=== PATIENT | male | born 1985 | race Caucasian/White ===

== ENCOUNTER → 2016-12-17 | Outpatient (CLI) | payer OTHER ==
[~2016-12-17] MED LIST: ACET-1256 PO; CMP10 PO; FAMO20TA11 PO; MAGN400T6 PO; OXYSR10 PO; SENN-65 PO
[2016-12-17 12:33] LABS: BASO % 0.1 %; BASO ABS # 0.01 K/uL (0-0.2); COMPLETE YES; HEMATOCRIT 43.9 % (42-52); IG% 0.1 %; LYMPH % 13.7 %; LYMPH ABS # 1.05 K/uL (1.2-3.4); MEAN CELL VOLUME 100.5 fL (80-100); MEAN CORPUSCULAR HEMOGLOBIN 35.2 pg (25-34); MEAN CORPUSCULAR HGB CONC 35.1 g/dl (32-36); MEAN PLATELET VOLUME 9.7 fL (7.4-10.4); NEUT % 75.1 %; PLATELET COUNT 143 K/uL (130-400); RED BLOOD COUNT 4.37 M/uL (4.7-6.1); WHITE BLOOD COUNT 7.64 K/uL (4.8-10.8)
[2016-12-17 12:42] LABS: ALT/SGPT 53 U/L (12-78); AST/SGOT 42 U/L (15-37); BLOOD UREA NITROGEN 15 mg/dl (7-18); BUN/CREATININE RATIO 13.8 (10-20); CALCIUM 9.5 mg/dl (8.5-10.1); CARBON DIOXIDE 27 mmol/L (21-32); CHLORIDE 105 mmol/L (98-107); GLUCOSE 108 mg/dl (70-99); POTASSIUM 3.6 mmol/L (3.5-5.1); SODIUM 141 mmol/L (136-145)
[2016-12-17 12:45] LABS: ALB/GLOB RATIO 1.1 (0.9-2); ALKALINE PHOSPHATASE 88 U/L (45-117)
== END | disposition home or self-care (01) ==
LOC: C.LABBFT 08:27
PROVIDERS: ATTEND Internal Medicine
DX: C62.90 Malignant neoplasm of unspecified testis, unspecified whether descended or undescended (principal); D70.2 Other drug-induced agranulocytosis

== ENCOUNTER → 2016-12-21 | Outpatient (CLI) | payer OTHER ==
[2016-12-24 14:33] LABS: AFP TUMOR MARKER SERUM 1.7 NG/ML (<6.1)
== END | disposition home or self-care (01) ==
LOC: C.LABBFT 13:47
PROVIDERS: ATTEND Internal Medicine
DX: C62.90 Malignant neoplasm of unspecified testis, unspecified whether descended or undescended (principal)

== ENCOUNTER → 2017-12-05 | Outpatient (CLI) | payer OTHER | END | disposition home or self-care (01) | LOC: C.LAB1850 11:15 | PROVIDERS: ATTEND Obstetrics & Gynecology Reproductive Endocrinology | DX: Z31.441 Encounter for testing of male partner of patient with recurrent pregnancy loss (principal) ==

== ENCOUNTER → 2018-05-23 | Outpatient (CLI) | payer OTHER ==
[2018-05-23 12:32] LABS: BASO % 0.3 %; BASO ABS # 0.02 K/uL (0-0.2); EOS % 2.7 %; EOS ABS # 0.16 K/uL (0-0.5); HEMATOCRIT 44.1 % (42-52); HEMOGLOBIN 15.4 g/dL (14.0-18.0); IG# 0.01 K/uL (0.00-0.02); LYMPH ABS # 1.31 K/uL (1.2-3.4); MEAN CELL VOLUME 99.1 fL (80-100); MEAN CORPUSCULAR HEMOGLOBIN 34.6 pg (25-34); MEAN CORPUSCULAR HGB CONC 34.9 g/dl (32-36); MEAN PLATELET VOLUME 9.4 fL (7.4-10.4); MONO % 9.2 %; MONO ABS # 0.55 K/uL (0.11-0.59); NEUT % 65.6 %; NEUT ABS # 3.91 K/uL (1.4-6.5); PLATELET COUNT 196 K/uL (130-400); RED CELL DISTRIBUTION WIDTH CV 11.9 % (11.5-14.5); RED CELL DISTRIBUTION WIDTH SD 43.2 fL (36.4-46.3); WHITE BLOOD COUNT 5.96 K/uL (4.8-10.8)
[2018-05-23 12:54] LABS: ALBUMIN 4.2 gm/dl (3.4-5.0); ALKALINE PHOSPHATASE 81 U/L (45-117); ALT/SGPT 54 U/L (12-78); AST/SGOT 33 U/L (15-37); BLOOD UREA NITROGEN 14 mg/dl (7-18); CALCIUM 9.5 mg/dl (8.5-10.1); CARBON DIOXIDE 25 mmol/L (21-32); CHOLESTEROL 207 mg/dl (0-200); CREATININE 1.11 mg/dl (0.60-1.40); GLUCOSE 81 mg/dl (70-99); LDL CHOLESTEROL CALCULATED 115 mg/dl; POTASSIUM 3.1 mmol/L (3.5-5.1); SODIUM 139 mmol/L (136-145)
== END | disposition home or self-care (01) ==
LOC: C.LABBFT 08:45
PROVIDERS: ATTEND Internal Medicine
DX: C62.90 Malignant neoplasm of unspecified testis, unspecified whether descended or undescended (principal); Z00.00 Encounter for general adult medical examination without abnormal findings

== ENCOUNTER 2024-09-20 11:21 | Inpatient (IN) ==
[2024-09-20 11:56] LABS: iSTAT Creatinine 4.7 mg/dl (0.6-1.3); iSTAT Hemoglobin 18.7 g/dl (14.0-18.0); iSTAT Ionized Calcium 0.97 mmol/l (1.12-1.32); iSTAT Potassium 4.2 mmol/L (3.3-5.0)
--- NOTE | 2024-09-20 11:58 | Emergency Department Note ---
Impression & Plan Volume depletion, gastrointestinal loss, Elevated LFTs, Vomiting, Abdominal pain, CHYNA (acute kidney injury), Lactic acid acidosis ED Provider Note NAME: TAL COMER AGE: 39 SEX: M : 1985 ARRIVES VIA: Walk-In INFORMANT: Patient, ED PROVIDER(S): Jayy Mcadams MD CHIEF COMPLAINT: Abdominal cramping/vomiting HPI: This is a 39-year-old male presenting for abdominal cramping/vomiting. Patient states that he has had numerous episodes of abdominal cramping sensations, vomiting from this. He notes he has not has nephric and diarrhea. No blood in his emesis or stools. Patient is here to eat or drink much due to this. He notes he has been weak and falling. ROS: See above HPI for pertinent positives & negatives. A total of 10 systems reviewed and were otherwise negative. PAST MEDICAL HISTORY: See Below PAST SURGICAL HISTORY: See Below FAMILY HISTORY: See Below SOCIAL HISTORY: See Below HOME MEDICATIONS: See Below ALLERGIES: See Below VITALS: See Below PHYSICAL EXAMINATION: General: resting comfortably in no acute distress Head: Normocephalic and atraumatic Eyes: Normal inspection, extraocular muscles intact Ear, nose, throat: Normal external exam Neck: Normal range of motion Respiratory: lungs clear to auscultation bilaterally Cardiovascular: Regular rate/rhythm, no murmur GI: Small amounts of psoriasis to abdomen, nontender otherwise Extremities: nontender, moves all extremities Neuro: The patient awake and alert, appropriately conversive, no focal deficits, symmetric faces Skin: Warm, dry, and intact MEDICAL DECISION MAKING: This a 39-year-old male presenting for abdominal cramping/vomiting. Patient expressed over dehydration. His blood pressure currently 60/40. Bedside E-FAST performed myself reveals no intra-abdominal fluid. Quick review of the aorta is very limited but distally it appears to be intact. There are significant bowel gas obscuring. -Will place 2 IVs, give fluids 2 L -Patient's creatinine on [id number] is significant elevated at 4.7. In addition, the anion gap is 20 with a hemoglobin 18.7. Consider dehydration as contributing to this abnormality. Will do CTs of the chest and abdomen to help rule out intra-abdominal process. -Due to patient elevated creatinine, will do Noncon CTs. Upon my initial independent trepidation, I see no obvious perforation, free air, pneumonia -Additional blood work does reveal leukocytosis to 15.67, creatinine of over 4, Lactic acid initially elevated and over 5, downtrending to 2.5 at 1.7 after further fluid resuscitation -Patient CT imaging reveals several loops of small bowel with circumferential wall thickening and edema suggestive of nonspecific enteritis. -Patient is still hypotensive at this time into the 70s despite 2 L normal saline. Will give third liter. -Will also initiate Levophed at this time -With Levophed support, patient blood pressure are improving. Patient received total 3 L at this time. -Discussed care with hospitalist service for admission. Made aware of all testing and need for admission at this time. -Discussed and consented for central line due to continued Levophed however ICU doctor, Dr. Nassar, states this is not necessary; he will down titrate Levophed and give further fluid cessation -Patient admitted to ICU differential diagnosis: Bowel perforation, dissection, SBO, dehydration, renal infarct, appendicitis, diverticulitis, ER treatment provided: See below Independent History obtained from: Diagnostics interpreted by me: ECG: ECG independently interpreted by me with normal sinus rhythm, rate of 96, normal axis, normal W[place], normal QRS, normal QTc, no ST segment elevations consistent with STEMI criteria Cardiac Monitoring: An order was placed for continuous cardiac monitoring. The monitor shows a rate of 90 with sinus rhythm. Laboratory studies: As stated above and show below. Imaging studies: See below. Critical Care Note: I have personally spent 65 minutes of critical care time in the direct management of this patient. This includes bedside care, interpretation of diagnostic studies, and testing, discussion with consultants, patient, and family members, and other required patient management activities. This 65 minutes is in excess of all separately billable procedures. Past Med/Surg History Problem List (Updated 09/20/24 @ 19:13 by Jayy Mcadams MD) Lactic acid acidosis (Acute) Volume depletion, gastrointestinal loss (Acute) CHYNA (acute kidney injury) (Acute) Hypotension Abdominal pain (Acute) Vomiting (Acute) Elevated LFTs (Acute) Hypertriglyceridemia HLD (hyperlipidemia) History of testicular cancer Mid back pain History of major abdominal surgery Generalized anxiety disorder (Chronic) Psoriasis Diarrhea (Acute) Fever Family History Other Colorectal cancer Denies family history of Prostate cancer Breast cancer Social History (Updated 01/07/24 @ 10:58 by Meche Pryor LPN) Smoking Status: Never smoker Second Hand Exposure: No; Do You Dip or Chew Tobacco: Yes (process of quitting); Hx Alcohol Use: Yes Alcohol type: beer Alcohol Intake Frequency: 4 or More x per/Week Alcohol Intake Frequency Comment: case of beer in a week Hx Substance Use: No Preferred Language: Maori Communication Ability: Effective Dermatology Nurse Practitioner Required: No Beliefs That Will Affect Care: None marital status: Current Living Situation: Family current occupational status: employed current occupation: [employer] Feels Safe at Home: Yes Childhood Exposure to Second-Hand Smoke: No Diet: regular caffeine: No Dental Care, Regularly: Yes Physical Activity Frequency: Daily Seatbelt Use: always Sunscreen Use: No Assistive Devices: None Allergies Allergies Allergy/AdvReac Type Severity Reaction Status Date / Time No Known Allergies Allergy Unknown ` Verified 01/07/24 10:51 Home Meds Home Medications Medication Instructions Recorded Confirmed escitalopram oxalate 10 mg tablet 0 mg PO DAILY 09/20/24 09/20/24 rosuvastatin 20 mg tablet 0 mg PO DAILY 09/20/24 09/20/24 triamcinolone acetonide 0.1 % 1 applic topical BID 09/20/24 09/20/24 topical cream Previous Rx's Medication Instructions Recorded clobetasol 0.05 % scalp solution 1 applic topical BID #50 mL 08/29/23 clobetasol 0.05 % topical cream 1 applic topical BID #30 grams 08/29/23 fenofibrate nanocrystallized 48 mg 48 mg PO DAILY #30 tabs 04/16/24 tablet Results & Data (ED) Vital Signs Vital Signs - 24 hr 09/20/24 11:27 09/20/24 11:40 09/20/24 12:14 Temperature 36.4 C L Temperature Source Oral Pulse Rate 103 H 94 H 87 Pulse Rate [Apical] Pulse Rate from SpO2 Sensor Respiratory Rate 20 25 H Respiratory Effort / Characteristics Non-Labored Spontaneous Respiratory Depth Normal Respiratory Pattern Regular Blood Pressure 110/43 L 73/46 L Blood Pressure [Left Arm] Blood Pressure Mean 65 51 Blood Pressure Mean [Left Arm] Pulse Oximetry 93 99 Oxygen Delivery Method Room Air Room Air Sepsis Recent Fever Within 48 Hours No Sepsis New/Unexplained Change in Mental Status N/A Sepsis Action Taken by Nursing No Action Required 09/20/24 12:25 09/20/24 12:30 09/20/24 12:41 Temperature Temperature Source Pulse Rate 84 84 Pulse Rate [Apical] 82 Pulse Rate from SpO2 Sensor Respiratory Rate 23 24 27 H Respiratory Effort / Characteristics Non-Labored Respiratory Depth Normal Respiratory Pattern Regular Blood Pressure 75/50 L 79/45 L Blood Pressure [Left Arm] 81/52 L Blood Pressure Mean 60 66 Blood Pressure Mean [Left Arm] 61 Pulse Oximetry 98 100 100 Oxygen Delivery Method Room Air Room Air Sepsis Recent Fever Within 48 Hours Sepsis New/Unexplained Change in Mental Status Sepsis Action Taken by Nursing 09/20/24 12:50 09/20/24 13:00 09/20/24 13:01 Temperature Temperature Source Pulse Rate 85 86 87 Pulse Rate [Apical] Pulse Rate from SpO2 Sensor Respiratory Rate 23 22 20 Respiratory Effort / Characteristics Respiratory Depth Respiratory Pattern Blood Pressure 79/42 L 92/62 L Blood Pressure [Left Arm] Blood Pressure Mean 49 75 Blood Pressure Mean [Left Arm] Pulse Oximetry 100 100 100 Oxygen Delivery Method Room Air Room Air Room Air Sepsis Recent Fever Within 48 Hours Sepsis New/Unexplained Change in Mental Status Sepsis Action Taken by Nursing 09/20/24 13:03 09/20/24 13:03 09/20/24 13:06 Temperature Temperature Source Pulse Rate 86 Pulse Rate [Apical] 85 Pulse Rate from SpO2 Sensor Respiratory Rate 26 H 25 H Respiratory Effort / Characteristics Non-Labored Respiratory Depth Normal Respiratory Pattern Blood Pressure 89/60 L 89/60 L Blood Pressure [Left Arm] 83/51 L Blood Pressure Mean 69 69 Blood Pressure Mean [Left Arm] 61 Pulse Oximetry 100 100 Oxygen Delivery Method Room Air Room Air Sepsis Recent Fever Within 48 Hours Sepsis New/Unexplained Change in Mental Status Sepsis Action Taken by Nursing 09/20/24 13:06 09/20/24 13:06 09/20/24 13:06 Temperature Temperature Source Pulse Rate Pulse Rate [Apical] Pulse Rate from SpO2 Sensor Respiratory Rate Respiratory Effort / Characteristics Respiratory Depth Respiratory Pattern Blood Pressure 83/51 L 83/51 L 83/51 L Blood Pressure [Left Arm] Blood Pressure Mean 63 63 63 Blood Pressure Mean [Left Arm] Pulse Oximetry Oxygen Delivery Method Sepsis Recent Fever Within 48 Hours Sepsis New/Unexplained Change in Mental Status Sepsis Action Taken by Nursing 09/20/24 13:06 09/20/24 13:09 09/20/24 13:12 Temperature Temperature Source Pulse Rate 85 85 Pulse Rate [Apical] Pulse Rate from SpO2 Sensor 85 85 Respiratory Rate 33 H 38 H Respiratory Effort / Characteristics Respiratory Depth Respiratory Pattern Blood Pressure 83/51 L Blood Pressure [Left Arm] Blood Pressure Mean 63 Blood Pressure Mean [Left Arm] Pulse Oximetry 100 100 Oxygen Delivery Method Sepsis Recent Fever Within 48 Hours Sepsis New/Unexplained Change in Mental Status Sepsis Action Taken by Nursing 09/20/24 13:16 09/20/24 13:20 09/20/24 13:25 Temperature 36.5 C Temperature Source Oral Pulse Rate 87 86 Pulse Rate [Apical] 85 Pulse Rate from SpO2 Sensor Respiratory Rate 28 H 22 24 Respiratory Effort / Characteristics Non-Labored Respiratory Depth Normal Respiratory Pattern Regular Blood Pressure 89/61 L 87/59 L Blood Pressure [Left Arm] 90/53 L Blood Pressure Mean 73 67 Blood Pressure Mean [Left Arm] 65 Pulse Oximetry 98 100 100 Oxygen Delivery Method Room Air Room Air Room Air Sepsis Recent Fever Within 48 Hours Sepsis New/Unexplained Change in Mental Status Sepsis Action Taken by Nursing 09/20/24 13:32 09/20/24 13:33 09/20/24 13:35 Temperature Temperature Source Pulse Rate 84 84 Pulse Rate [Apical] 85 Pulse Rate from SpO2 Sensor 85 Respiratory Rate 23 40 H 28 H Respiratory Effort / Characteristics Non-Labored Respiratory Depth Normal Respiratory Pattern Blood Pressure 98/60 L Blood Pressure [Left Arm] 74/51 L Blood Pressure Mean 67 Blood Pressure Mean [Left Arm] 58 Pulse Oximetry 99 98 98 Oxygen Delivery Method Room Air Room Air Sepsis Recent Fever Within 48 Hours Sepsis New/Unexplained Change in Mental Status Sepsis Action Taken by Nursing 09/20/24 13:40 09/20/24 13:51 09/20/24 13:51 Temperature Temperature Source Pulse Rate 85 89 89 Pulse Rate [Apical] Pulse Rate from SpO2 Sensor 89 Respiratory Rate 19 32 H 32 H Respiratory Effort / Characteristics Respiratory Depth Respiratory Pattern Blood Pressure 87/52 L 81/52 L Blood Pressure [Left Arm] Blood Pressure Mean 66 61 Blood Pressure Mean [Left Arm] Pulse Oximetry 98 97 97 Oxygen Delivery Method Room Air Sepsis Recent Fever Within 48 Hours Sepsis New/Unexplained Change in Mental Status Sepsis Action Taken by Nursing 09/20/24 14:00 09/20/24 14:00 Temperature Temperature Source Pulse Rate 90 Pulse Rate [Apical] Pulse Rate from SpO2 Sensor Respiratory Rate 34 H Respiratory Effort / Characteristics Respiratory Depth Respiratory Pattern Blood Pressure 101/54 L 101/54 L Blood Pressure [Left Arm] Blood Pressure Mean 71 71 Blood Pressure Mean [Left Arm] Pulse Oximetry 97 Oxygen Delivery Method Room Air Sepsis Recent Fever Within 48 Hours Sepsis New/Unexplained Change in Mental Status Sepsis Action Taken by Nursing Laboratory Data 09/20/24 11:42 09/20/24 11:42 Lab Results 09/20/24 09/20/24 09/20/24 Range/Units 11:42 11:44 12:44 WBC 15.67 H (4.8-10.8) K/ul RBC 5.20 (4.70-6.10) M/uL Hgb 18.0 (14.0-18.0) g/dl POC Hgb 18.7 H (14.0-18.0) g/dl Hct 52.1 H (42.0-52.0) % POC Hct 55 H (42-52) % MCV 100.2 H (80.0-100.0) fL MCH 34.6 H (25.0-34.0) pg MCHC 34.5 (32.0-36.0) g/dL RDW Std Deviation 43.9 (36.4-46.3) fL RDW Coeff of Sarah 11.8 (11.5-14.5) % Plt Count 181 (130-400) K/uL MPV 9.9 (9.4-12.4) fL Immature Gran % (Auto) 0.5 % Neut % (Auto) 81.0 % Lymph % (Auto) 10.7 % [place] % (Auto) 6.0 % Eos % (Auto) 1.5 % Baso % (Auto) 0.3 % Neut # (Auto) 12.69 H (1.40-6.50) K/uL Lymph # (Auto) 1.68 (1.20-3.40) K/uL [place] # (Auto) 0.94 H (0.11-0.59) K/uL Eos # (Auto) 0.23 (0.00-0.50) K/uL Baso # (Auto) 0.05 (0.00-0.20) K/uL Immature Gran # (Auto) 0.08 (0.01-0.20) K/uL Toxic Vacuolation 2+ POC Sodium 133 L (135-144) mmol/L Sodium 137 (136-145) mmol/L POC Potassium 4.2 (3.3-5.0) mmol/L Potassium 4.3 (3.5-5.1) mmol/L POC Chloride 99 L (101-112) mmol/L Chloride 92 L (98-107) mmol/L Carbon Dioxide 18 L (21-32) mmol/L POC Total CO2 19 L (24-31) mmol/L Anion Gap 27 H (3-11) POC Anion Gap 20.0 (16-25) mmol/L POC BUN 48 H (7-18) mg/dl BUN 48 H (6-23) mg/dl Creatinine 4.03 H (0.6-1.4) mg/dl POC Creatinine 4.7 H* (0.6-1.3) mg/dl Est Cr Clr Drug Dosing Not Reportable eGFR 18.32 BUN/Creatinine Ratio 11.9 (10-20) Glucose 110 H (70-99(Fasting)) mg/dl POC Glucose (other) 109 H (70-99) mg/dl Lactate 5.0 H* (0.4-2.0) mmol/L Calcium 9.9 (8.6-10.3) mg/dl POC Ioniz Calcium Liz 0.97 L (1.12-1.32) mmol/l Total Bilirubin 3.5 H (0.2-1.0) mg/dl AST 179 H (13-39) U/L ALT 89 H (7-52) U/L Alkaline Phosphatase 60 (34-104) U/L Total Protein 7.9 (6.0-8.3) gm/dl Albumin 4.5 (3.4-5.0) gm/dl Globulin 3.4 (2.5-4.0) gm/dl Albumin/Globulin Ratio 1.3 (0.9-2) Lipase 23 (11-82) U/L Procalcitonin > 100.00 H (0-0.5) ng/ml Adenovirus (PCR) Not Detected (NotDetected) B. pertussis DNA (PCR) Not Detected (NotDetected) B.parapertussis DNA PCR Not Detected (NotDetected) C. pneumoniae DNA (PCR) Not Detected (NotDetected) Coronavirus OC43 (PCR) Not Detected (NotDetected) Coronavirus HKU1 (PCR) Not Detected (NotDetected) Coronavirus 229E (PCR) Not Detected (NotDetected) SARS-CoV-2 (PCR) Not Detected (NotDetected) Coronavirus NL63 (PCR) Not Detected (NotDetected) Human Metapneumovir PCR Not Detected (NotDetected) Influenza Type A (PCR) Not Detected (NotDetected) Influenza Type B (PCR) Not Detected (NotDetected) M. pneumoniae (PCR) Not Detected (NotDetected) Parainfluenza 1 (PCR) Not Detected (NotDetected) Parainfluenza 2 (PCR) Not Detected (NotDetected) Parainfluenza 3 (PCR) Not Detected (NotDetected) Parainfluenza 4 (PCR) Not Detected (NotDetected) RSV (PCR) Not Detected (NotDetected) Entero/Rhino (PCR) Not Detected (NotDetected) 09/20/24 09/20/24 Range/Units 13:11 14:08 WBC (4.8-10.8) K/ul RBC (4.70-6.10) M/uL Hgb (14.0-18.0) g/dl POC Hgb (14.0-18.0) g/dl Hct (42.0-52.0) % POC Hct (42-52) % MCV (80.0-100.0) fL MCH (25.0-34.0) pg MCHC (32.0-36.0) g/dL RDW Std Deviation (36.4-46.3) fL RDW Coeff of Sarah (11.5-14.5) % Plt Count (130-400) K/uL MPV (9.4-12.4) fL Immature Gran % (Auto) % Neut % (Auto) % Lymph % (Auto) % [place] % (Auto) % Eos % (Auto) % Baso % (Auto) % Neut # (Auto) (1.40-6.50) K/uL Lymph # (Auto) (1.20-3.40) K/uL [place] # (Auto) (0.11-0.59) K/uL Eos # (Auto) (0.00-0.50) K/uL Baso # (Auto) (0.00-0.20) K/uL Immature Gran # (Auto) (0.01-0.20) K/uL Toxic Vacuolation POC Sodium (135-144) mmol/L Sodium (136-145) mmol/L POC Potassium (3.3-5.0) mmol/L Potassium (3.5-5.1) mmol/L POC Chloride (101-112) mmol/L Chloride (98-107) mmol/L Carbon Dioxide (21-32) mmol/L POC Total CO2 (24-31) mmol/L Anion Gap (3-11) POC Anion Gap (16-25) mmol/L POC BUN (7-18) mg/dl BUN (6-23) mg/dl Creatinine (0.6-1.4) mg/dl POC Creatinine (0.6-1.3) mg/dl Est Cr Clr Drug Dosing eGFR BUN/Creatinine Ratio (10-20) Glucose (70-99(Fasting)) mg/dl POC Glucose (other) (70-99) mg/dl Lactate 2.5 H* 1.7 (0.4-2.0) mmol/L Calcium (8.6-10.3) mg/dl POC Ioniz Calcium Liz (1.12-1.32) mmol/l Total Bilirubin (0.2-1.0) mg/dl AST (13-39) U/L ALT (7-52) U/L Alkaline Phosphatase (34-104) U/L Total Protein (6.0-8.3) gm/dl Albumin (3.4-5.0) gm/dl Globulin (2.5-4.0) gm/dl Albumin/Globulin Ratio (0.9-2) Lipase (11-82) U/L Procalcitonin (0-0.5) ng/ml Adenovirus (PCR) (NotDetected) B. pertussis DNA (PCR) (NotDetected) B.parapertussis DNA PCR (NotDetected) C. pneumoniae DNA (PCR) (NotDetected) Coronavirus OC43 (PCR) (NotDetected) Coronavirus HKU1 (PCR) (NotDetected) Coronavirus 229E (PCR) (NotDetected) SARS-CoV-2 (PCR) (NotDetected) Coronavirus NL63 (PCR) (NotDetected) Human Metapneumovir PCR (NotDetected) Influenza Type A (PCR) (NotDetected) Influenza Type B (PCR) (NotDetected) M. pneumoniae (PCR) (NotDetected) Parainfluenza 1 (PCR) (NotDetected) Parainfluenza 2 (PCR) (NotDetected) Parainfluenza 3 (PCR) (NotDetected) Parainfluenza 4 (PCR) (NotDetected) RSV (PCR) (NotDetected) Entero/Rhino (PCR) (NotDetected) Administered Medications Norepinephrine Bitartrate (Levophed/D5w) 4 mg in 250 mls @ 17.269 mls/hr IV .[id number] [facility]; Protocol Stop: 10/20/24 12:44 Last Titration: 09/20/24 19:03 Dose: 0.07 mcg/kg/min, 24.2 mls/hr Documented By: WRS Co-signed By: CLC Titration: 09/20/24 18:17 Dose: 0.07 mcg/kg/min, 24.2 mls/hr Documented By: Titration: 09/20/24 17:17 Dose: 0.05 mcg/kg/min, 17.3 mls/hr Documented By: Titration: 09/20/24 16:20 Dose: 0.03 mcg/kg/min, 10.4 mls/hr Documented By: Titration: 09/20/24 15:27 Dose: 0.05 mcg/kg/min, 17.3 mls/hr Documented By: BRJ Co-signed By: MMN Titration: 09/20/24 15:27 Dose: 0.05 mcg/kg/min, 17.3 mls/hr Documented By: Titration: 09/20/24 15:06 Dose: 0 mcg/kg/min, 0 mls/hr Documented By: Titration: 09/20/24 13:58 Dose: 0.1 mcg/kg/min, 34.5 mls/hr Documented By: Titration: 09/20/24 13:31 Dose: 0.09 mcg/kg/min, 31.1 mls/hr Documented By: Titration: 09/20/24 13:08 Dose: 0.07 mcg/kg/min, 24.2 mls/hr Documented By: Admin: 09/20/24 12:53 Dose: 0.05 mcg/kg/min, 17.3 mls/hr Documented By: JEWEL Co-signed By: CORNELIA Sodium Chloride (Nss) 1,000 mls @ 125 mls/hr IV .Q8H JENNIFER Stop: 09/21/24 16:04 Last Admin: 09/20/24 16:20 Dose: 125 mls/hr Documented By: TIARA Discontinued Medications Hydrocortisone Sodium Succinate (Hydrocortisone Sod Succinate 100 Mg/2 Ml Vial) 100 mg IV NOW STA Stop: 09/20/24 15:33 Last Admin: 09/20/24 15:48 Dose: 100 mg Documented By: GARCÍA Sodium Chloride (Nss) 1,000 mls @ 999 mls/hr IV .Q1H1M JENNIFER Stop: 09/20/24 14:00 Last Infusion: 09/20/24 13:27 Dose: Infused Documented By: Admin: 09/20/24 12:25 Dose: 999 mls/hr Documented By: Infusion: 09/20/24 12:25 Dose: Infused Documented By: Admin: 09/20/24 12:25 Dose: 999 mls/hr Documented By: JEWEL Lactated Ringer's (Lr) 1,000 mls @ 999 mls/hr IV .Q1H1M ONE Stop: 09/20/24 13:15 Last Admin: 09/20/24 13:26 Dose: Not Given Documented By: JEWEL Vancomycin HCl 2,250 mg/ (Dextrose) 545 mls @ 200 mls/hr IV NOW ONE Stop: 09/20/24 16:18 Last Infusion: 09/20/24 17:13 Dose: Infused Documented By: Admin: 09/20/24 14:44 Dose: 200 mls/hr Documented By: JEWEL Piperacillin Sod/Tazobactam Sod (Zosyn) 4.5 gm in 100 mls @ 200 mls/hr IV NOW ONE; Protocol Stop: 09/20/24 14:04 Last Infusion: 09/20/24 14:53 Dose: Infused Documented By: Admin: 09/20/24 14:22 Dose: 200 mls/hr Documented By: JEWEL Pantoprazole Sodium (Protonix) 40 mg in 10 mls @ 5 mls/min IV DAILY JENNIFER Stop: 10/20/24 14:29 Last Admin: 09/20/24 14:44 Dose: 5 mls/min Documented By: JEWEL Sodium Chloride (Nss) 1,000 mls @ 999 mls/hr IV .Q1H1M ONE Stop: 09/20/24 16:03 Last Infusion: 09/20/24 16:34 Dose: Infused Documented By: Admin: 09/20/24 15:32 Dose: 999 mls/hr Documented By: GARCÍA Miscellaneous (Stat Iv Infusion Titration Per Protocol) 1 each N/A NOW STA Stop: 09/20/24 12:37 Last Admin: 09/20/24 15:32 Dose: 1 each Documented By: GARCÍA Norepinephrine Bitartrate (Norepinephrine/D5w 4 Mg/250 Ml) Confirm Administered Dose 4 mg IV .STK-MED ONE Stop: 09/20/24 11:46 Last Admin: 09/20/24 12:55 Dose: Not Given Documented By: JEWEL Imaging Data Radiologist's Impression: Chest CT 09/20/24 11:48 CT chest diagnostic wo con, CT abd pelvis wo con CT DOSE: 2266.86 mGy.cm CLINICAL HISTORY: 39 years-old Male with Hypotension, sob. Acute chest and abdominal pain TECHNIQUE: Multiaxial CT images of the chest, abdomen and pelvis were performed without contrast. A dose lowering technique was utilized adhering to the principles of ALARA. COMPARISON: CT abdomen and pelvis 08/22/2010, CTA chest 04/26/2010 FINDINGS: CT CHEST: Unremarkable thyroid. Heart is normal in size without pericardial effusion. No thoracic aortic aneurysm. Moderate gynecomastia. Moderate right hemidiaphragmatic elevation. Subsegmental right basilar scarring/atelectasis again noted. Unremarkable soft tissues. No acute fracture. CT ABDOMEN/PELVIS: No pneumoperitoneum. Unremarkable unenhanced spleen, pancreas and adrenal glands. Hepatic steatosis. Surgically absent gallbladder. Unremarkable kidneys without hydronephrosis. Decompressed bladder with wall thickening. Abdominal pelvic varicosities are noted. Surgical clips within the right abdomen with small bowel anastomotic sutures. A few loops of small bowel demonstrates circumferential wall thickening with adjacent inflammatory stranding. No high-grade small bowel obstruction. Several intra-abdominal hernias are noted, one of which partially contains a loop of bowel on image 205 series 7. Dilated loop of bowel image 100 measures 3.9 cm transversely. No drainable fluid collections. No acute fracture. IMPRESSION: 1. No acute process of the chest. 2. Several loops of small bowel demonstrate circumferential wall thickening with interloop edema suggestive of a nonspecific enteritis. A single loop is mildly dilated as well. A partial small bowel obstruction considered less likely. 3. No pneumoperitoneum. 4. Additional findings as above. ACT 112: Negative or not required by law. Electronically signed by: Jose J Deutsch M.D. 09/20/2024 1:25 PM Abdomen/Pelvis CT 09/20/24 11:49 CT chest diagnostic wo con, CT abd pelvis wo con CT DOSE: 2266.86 mGy.cm CLINICAL HISTORY: 39 years-old Male with Hypotension, sob. Acute chest and abdominal pain TECHNIQUE: Multiaxial CT images of the chest, abdomen and pelvis were performed without contrast. A dose lowering technique was utilized adhering to the principles of ALARA. COMPARISON: CT abdomen and pelvis 08/22/2010, CTA chest 04/26/2010 FINDINGS: CT CHEST: Unremarkable thyroid. Heart is normal in size without pericardial effusion. No thoracic aortic aneurysm. Moderate gynecomastia. Moderate right hemidiaphragmatic elevation. Subsegmental right basilar scarring/atelectasis again noted. Unremarkable soft tissues. No acute fracture. CT ABDOMEN/PELVIS: No pneumoperitoneum. Unremarkable unenhanced spleen, pancreas and adrenal glands. Hepatic steatosis. Surgically absent gallbladder. Unremarkable kidneys without hydronephrosis. Decompressed bladder with wall thickening. Abdominal pelvic varicosities are noted. Surgical clips within the right abdomen with small bowel anastomotic sutures. A few loops of small bowel demonstrates circumferential wall thickening with adjacent inflammatory stranding. No high-grade small bowel obstruction. Several intra-abdominal hernias are noted, one of which partially contains a loop of bowel on image 205 series 7. Dilated loop of bowel image 100 measures 3.9 cm transversely. No drainable fluid collections. No acute fracture. IMPRESSION: 1. No acute process of the chest. 2. Several loops of small bowel demonstrate circumferential wall thickening with interloop edema suggestive of a nonspecific enteritis. A single loop is mildly dilated as well. A partial small bowel obstruction considered less likely. 3. No pneumoperitoneum. 4. Additional findings as above. ACT 112: Negative or not required by law. Electronically signed by: Jose J Deutsch M.D. 09/20/2024 1:25 PM Discharge Plan Visit Data Chief Complaint: Abdominal Pain Stated Complaint: ABD CRAMPING, NAUSEA, VOMITING, DEHYDRATION ED Provider: Jayy Mcadams Discharge Problem: Volume depletion, gastrointestinal loss, Elevated LFTs, Vomiting, Abdominal pain, CHYNA (acute kidney injury), Lactic acid acidosis Patient Disposition: Admitted As Inpatient Discharge Instructions Interventions: ED Discharge Assessment Last Done: 09/20/24 16:00
[2024-09-20 12:18] LABS: Alanine Aminotransferase 89 U/L (7-52); Albumin Globulin Ratio 1.3 (0.9-2); Albumin Level 4.5 gm/dl (3.4-5.0); Alkaline Phosphatase 60 U/L (34-104); Anion Gap 27 (3-11); Aspartate Aminotransferase 179 U/L (13-39); BUN Creatinine Ratio 11.9 (10-20); Bilirubin,Total 3.5 mg/dl (0.2-1.0); Blood Urea Nitrogen 48 mg/dl (6-23); Calcium 9.9 mg/dl (8.6-10.3); Carbon Dioxide 18 mmol/L (21-32); Chloride 92 mmol/L (98-107); Globulin 3.4 gm/dl (2.5-4.0); Glucose 110 mg/dl (70-99(Fasting)); Lipase 23 U/L (11-82); Potassium 4.3 mmol/L (3.5-5.1); Sodium 137 mmol/L (136-145); Total Protein 7.9 gm/dl (6.0-8.3)
[2024-09-20] MEDS: SODIUM CHLORIDE 0.9% 1,000 ML IV SCH ×2 (12:25→16:20)
[2024-09-20 12:28] LABS: Hematocrit (blood only) 52.1 % (42.0-52.0); Mean Corpuscular Hemoglobin 34.6 pg (25.0-34.0); Mean Corpuscular Hgb Conc 34.5 g/dL (32.0-36.0); Mean Corpuscular Volume 100.2 fL (80.0-100.0); Mean Platelet Volume 9.9 fL (9.4-12.4); Platelet Count 181 K/uL (130-400); RDW Coefficient of Variation 11.8 % (11.5-14.5); RDW Standard Deviation 43.9 fL (36.4-46.3); White Blood Count 15.67 K/ul (4.8-10.8)
[2024-09-20 12:29] LABS: Basophils # (auto) 0.05 K/uL (0.00-0.20); Basophils % (auto) 0.3 %; Eosinophils # (auto) 0.23 K/uL (0.00-0.50); Eosinophils % (auto) 1.5 %; Immature Granulocytes # (auto) 0.08 K/uL (0.01-0.20); Immature Granulocytes % (auto) 0.5 %; Lymphocytes # (auto) 1.68 K/uL (1.20-3.40); Lymphocytes % (auto) 10.7 %; Monocytes # (auto) 0.94 K/uL (0.11-0.59); Neutrophils # (auto) 12.69 K/uL (1.40-6.50); Toxic Vacuolation 2+
[2024-09-20] MEDS: NOREPINEPHRINE/D5W 4 MG/250 ML PLCT IV SCH (12:53)
[2024-09-20] MEDS: NOREPINEPHRINE/D5W 4 MG/250 ML IV ONE (12:55)
[2024-09-20] MEDS: LACTATED RINGER'S 1,000 ML IV ONE (13:26)
--- NOTE | 2024-09-20 13:27 | CT Scan Report ---
CT chest diagnostic wo con, CT abd pelvis wo con CT DOSE: 2266.86 mGy.cm CLINICAL HISTORY: 39 years-old Male with Hypotension, sob. Acute chest and abdominal pain TECHNIQUE: Multiaxial CT images of the chest, abdomen and pelvis were performed without contrast. A dose lowering technique was utilized adhering to the principles of ALARA. COMPARISON: CT abdomen and pelvis 08/22/2010, CTA chest 04/26/2010 FINDINGS: CT CHEST: Unremarkable thyroid. Heart is normal in size without pericardial effusion. No thoracic aor tic aneurysm. Moderate gynecomastia. Moderate right hemidiaphragmatic elevation. Subsegmental right b asilar scarring/atelectasis again noted. Unremarkable soft tissues. No acute fracture. CT ABDOMEN/PELVIS: No pneumoperitoneum. Unremarkable unenhanced spleen, pancreas and adrenal glands. Hepatic steatosis. Surgically absent gallbladder. Unremarkable kidneys without hydronephrosis. Decomp ressed bladder with wall thickening. Abdominal pelvic varicosities are noted. Surgical clips within t he right abdomen with small bowel anastomotic sutures. A few loops of small bowel demonstrates circum ferential wall thickening with adjacent inflammatory stranding. No high-grade small bowel obstruction . Several intra-abdominal hernias are noted, one of which partially contains a loop of bowel on image 205 series 7. Dilated loop of bowel image 100 measures 3.9 cm transversely. No drainable fluid colle ctions. No acute fracture. IMPRESSION: 1. No acute process of the chest. 2. Several loops of small bowel demonstrate circumferential wall thickening with interloop edema sugg estive of a nonspecific enteritis. A single loop is mildly dilated as well. A partial small bowel obs truction considered less likely. 3. No pneumoperitoneum. 4. Additional findings as above. ACT 112: Negative or not required by law. Electronically signed by: Jose J Deutsch M.D. 09/20/2024 1:25 PM
[2024-09-20] MEDS ORDERED: VANCOMYCIN CONSULT ACTIVE PRN (13:35)
[2024-09-20 13:53] LABS: Adenovirus PCR Not Detected (NotDetected); Bordetella parapertussis PCR Not Detected (NotDetected); Bordetella pertussis PCR Not Detected (NotDetected); Chlamydia pneumoniae PCR Not Detected (NotDetected); Coronavirus 229E PCR Not Detected (NotDetected); Coronavirus CoV-2 (COVID19)PCR Not Detected (NotDetected); Coronavirus HKU1 PCR Not Detected (NotDetected); Coronavirus NL63 PCR Not Detected (NotDetected); Coronavirus OC43PCR Not Detected (NotDetected); Human Metapneumovirus PCR Not Detected (NotDetected); Influenza A PCR Not Detected (NotDetected); Influenza B PCR Not Detected (NotDetected); Mycoplasma pneumoniae PCR Not Detected (NotDetected); Parainfluenza Virus 1 PCR Not Detected (NotDetected); Parainfluenza Virus 2 PCR Not Detected (NotDetected); Parainfluenza Virus 3 PCR Not Detected (NotDetected); Parainfluenza Virus 4 PCR Not Detected (NotDetected); Respiratory Syncytial VirusPCR Not Detected (NotDetected); Rhinovirus/Enterovirus PCR Not Detected (NotDetected)
[2024-09-20] MEDS: PIPERACILLIN/TAZOBACTAM 4.5 GM/100 ML BAG IV ONE (14:22)
--- NOTE | 2024-09-20 14:36 | History & Physical Report ---
Date of Service September 20, 2024 Assessment & Plan (1) Vomiting: Plan: This is a 39-year-old gentleman with past medical history of anxiety, diarrhea, testicular cancer, hyperlipidemia who presented to the ED on 09/20/2024 with a chief complaint of vomiting. Currently, patient symptoms have resolved aside from profound hypotension. SIRS criteria met with pulse of 92, respirations 25, and WBC 15.67. CBC with leukocytosis of 15.67, hgb 18 CMP with creatinine of 4.03, stable electrolytes LFTs elevated w/ TB of 3.5, AST/ALT 179/89, DB 0.2 continue to trend LFTs - if they remain elevated and kidney function improves, consider repeat CTAP w/ contrast. Lactate initial of 5 with repeat at 1.7 Lipase 23 Respiratory Biofire negative. GI Biofire ordere Urine culture ordered. Procalcitonin pending. CTAP: several loops of SB demonstrate circumferential wall thickening w/ interloop edema suggestive of nonspecific enteritis. single loop mildly dilated. partial SBO considered less likely. Chest CT: negative Maintain NPO status, allowed to have meds w/ sip of water Continue resuscitation with IVF Pressor support w/ Levophed in ED to get SBP >90. Currently on hold. Continue IV Zosyn/Vancomycin pending blood culture results Tylenol prn for pain or fever Zofran prn for nausea/vomiting AM CBC, CMP (2) Hypotension: Plan: Profound hypotension of 60/40 s/p 2L bolus of NSS, additional 1L given Levophed given in ED but held SBP >90 Continue to monitor closely. (3) Abdominal pain: Plan: see plan #1 Trend LFTs Pain currently resolved. (4) CHYNA (acute kidney injury): Plan: Creatinine 4.03 on admission etiology likely due to acute dehydration. s/p 2L bolus Additional 1L IVF and 1L bolus ordered. Plan Chronic conditions: Anxiety: Lexapro DVT prophylaxis: Heparin Code status: full Diet: NPO Disposition: PCU Case discussed with Dr. Victor at time of admission. History of Present Illness Primary Care Provider: Allen Ferreira DO This is a 39-year-old gentleman with past medical history of anxiety, diarrhea, testicular cancer, hyperlipidemia who presented to the ED on 09/20/2024 with a chief complaint of vomiting. The patient states that last night he had several episodes of vomiting along with diarrhea. He states that his last episode of emesis was around 10 PM last evening and his last episode of diarrhea was around midnight. He denies melena, hematochezia, or hematemesis. States that he had abdominal cramping as well throughout his abdomen. He denies any sick contacts. He denies eating anything unusual. He denies chest pain or shortness of breath today. Patient does state that last night he did have some periods of shortness of breath but this is since resolved. Denies any fevers or chills. Denies any lower extremity edema. Denies any urinary symptoms. Patient denies any recent alcohol use. He denies illicit substance use. Patient admits poor PO intake over last day. States he has not ate anything due to fear of vomiting again. States he has had little water to drink. While in the ED patient was found to be profoundly hypotensive (60/40) requiring Levophed. ED provider to place central line for continued pressor support. Blood pressure improving to 101/54 at time of my encounter. He was resting comfortably in bed with family at bedside. Allergies Allergy/AdvReac Type Severity Reaction Status Date / Time No Known Allergies Allergy Unknown ` Verified 01/07/24 10:51 Home Medications Medication Instructions Recorded Confirmed Type clobetasol 0.05 % scalp solution 1 applic topical BID #50 mL 08/29/23 09/20/24 Rx clobetasol 0.05 % topical cream 1 applic topical BID #30 grams 08/29/23 09/20/24 Rx fenofibrate nanocrystallized 48 mg 48 mg PO DAILY #30 tabs 04/16/24 09/20/24 Rx tablet escitalopram oxalate 10 mg tablet 0 mg PO DAILY 09/20/24 09/20/24 History rosuvastatin 20 mg tablet 0 mg PO DAILY 09/20/24 09/20/24 History triamcinolone acetonide 0.1 % 1 applic topical BID 09/20/24 09/20/24 History topical cream Past Med/Surg History Problem List (Updated 09/21/24 @ 10:06 by Hardik Isaacs MD, [facility]) Shock circulatory Lactic acid acidosis (Acute) Volume depletion, gastrointestinal loss (Acute) CHYNA (acute kidney injury) (Acute) Hypotension Abdominal pain (Acute) Vomiting (Acute) Elevated LFTs (Acute) Hypertriglyceridemia HLD (hyperlipidemia) History of testicular cancer Mid back pain History of major abdominal surgery Generalized anxiety disorder (Chronic) Psoriasis Diarrhea (Acute) Fever Family History Other Colorectal cancer Denies family history of Prostate cancer Breast cancer Social History (Updated 01/07/24 @ 10:58 by Meche Pryor LPN) Smoking Status: Never smoker Second Hand Exposure: No; Do You Dip or Chew Tobacco: Yes (process of quitting); Hx Alcohol Use: Yes Alcohol type: beer Alcohol Intake Frequency: 4 or More x per/Week Alcohol Intake Frequency Comment: case of beer in a week Hx Substance Use: No Preferred Language: Slovak Communication Ability: Effective Lead Pl Sql Developer Required: No Beliefs That Will Affect Care: None marital status: Current Living Situation: Family current occupational status: employed current occupation: [employer] Feels Safe at Home: Yes Childhood Exposure to Second-Hand Smoke: No Diet: regular caffeine: No Dental Care, Regularly: Yes Physical Activity Frequency: Daily Seatbelt Use: always Sunscreen Use: No Assistive Devices: None Physical Exam 2 Constitutional: WD/WN, vitals as above Eyes: PERRL, conjunctivae normal, anicteric sclerae Respiratory: normal respiratory effort, lungs clear to auscultation Cardiovascular: RRR, no murmur, no edema Gastrointestinal (Abdomen): + bowel sounds, negative for abdominal t enderness. Psychiatric: A+Ox3, euthymic affect Results & Data Results & Data Vital Signs (Past 12 Hours) Vital Signs Temp Pulse Pulse Resp BP BP Pulse Ox 09/20/24 14:00 101/54 L 09/20/24 14:00 90 34 H 101/54 L 97 09/20/24 13:51 89 32 H 81/52 L 97 09/20/24 13:51 89 32 H 97 09/20/24 13:40 85 19 87/52 L 98 09/20/24 13:35 84 28 H 98/60 L 98 09/20/24 13:33 84 40 H 98 09/20/24 13:32 85 23 74/51 L 99 09/20/24 13:25 86 24 87/59 L 100 09/20/24 13:20 87 22 89/61 L 100 09/20/24 13:16 36.5 C 85 28 H 90/53 L 98 09/20/24 13:12 85 38 H 100 09/20/24 13:09 85 33 H 100 09/20/24 13:06 83/51 L 09/20/24 13:06 83/51 L 09/20/24 13:06 83/51 L 09/20/24 13:06 83/51 L 09/20/24 13:06 85 25 H 83/51 L 100 09/20/24 13:03 89/60 L 09/20/24 13:03 86 26 H 89/60 L 100 09/20/24 13:01 87 20 100 09/20/24 13:00 86 22 92/62 L 100 09/20/24 12:50 85 23 79/42 L 100 09/20/24 12:41 84 27 H 79/45 L 100 09/20/24 12:30 84 24 75/50 L 100 09/20/24 12:25 82 23 81/52 L 98 09/20/24 12:14 87 25 H 73/46 L 99 09/20/24 11:40 94 H 09/20/24 11:27 36.4 C L 103 H 20 110/43 L 93 O2 Del Method 09/20/24 14:00 09/20/24 14:00 Room Air 09/20/24 13:51 09/20/24 13:51 09/20/24 13:40 Room Air 09/20/24 13:35 Room Air 09/20/24 13:33 09/20/24 13:32 Room Air 09/20/24 13:25 Room Air 09/20/24 13:20 Room Air 09/20/24 13:16 Room Air 09/20/24 13:12 09/20/24 13:09 09/20/24 13:06 09/20/24 13:06 09/20/24 13:06 09/20/24 13:06 09/20/24 13:06 Room Air 09/20/24 13:03 09/20/24 13:03 Room Air 09/20/24 13:01 Room Air 09/20/24 13:00 Room Air 09/20/24 12:50 Room Air 09/20/24 12:41 09/20/24 12:30 Room Air 09/20/24 12:25 Room Air 09/20/24 12:14 Room Air 09/20/24 11:40 09/20/24 11:27 Room Air Laboratory Results 09/20/24 11:42 09/20/24 11:42 Critical Care Time Critical Care Time: Yes Total Critical Care Time: 32 Supervising Physician Co-Signing Physician Notes I have personally spent 32 minutes of critical care time in the direct management of this patient. This is a life/limb threatening event. This includes time spent evaluating patient, direct bedside care, chart review, placing orders, interpretation of diagnostic studies, discussion with consultants, patient, and/or family members regarding treatment decisions, as well as other required patient management activities. This time is exclusive of all separately billable procedures, and teaching time and separate from and in addition to any other critical care service time. During face to face encounter, I obtained a history and physical examination, discussed plan of care with patient. I discussed plan of care with SAAD Perales. I reviewed above note and agree with it except for the following: Patient will be admitted to the ICU for hypovolemic shock vs septic shock. Patient continues to require levophed. WIll continue with antibiotics/ IVF Patient also has acute renal failure with creatinine in the 4. PG Care Time/CCT Total # of Minutes Spent Total Time Spent with Patient: Total time spent is greater than 50% in coordination of care (as documented) at patient's floor/unit and/or counseling patient: Critical Care Time: Yes Total Critical Care Time: 32 I have personally spent 32 minutes of critical care time in the direct management of this patient. This is a life/limb threatening event. This includes time spent evaluating patient, direct bedside care, chart review, placing orders, interpretation of diagnostic studies, discussion with consultants, patient, and/or family members regarding treatment decisions, as well as other required patient management activities. This time is exclusive of all separately billable procedures, and teaching time and separate from and in addition to any other critical care service time. Coding Level of Care Code 05384 INT INP/OBS CARE 3/75MIN (25 - SIGNIFICANT, SEPARATELY IDENTIFIABLE ) Diagnoses Vomiting R11.10 Vomiting type: unspecified Other specified hypotension I95.89 Hypotension type: other hypotension type Abdominal pain R10.9 CHYNA (acute kidney injury) N17.9 Additional Codes Critical Care Time - Critical Care Time: Yes ([id number]) (1) Vomiting Vomiting type: unspecified (2) Hypotension Hypotension type: other hypotension type Qualified Code(s): I95.89 - Other hypotension
[2024-09-20] MEDS: VANCOMYCIN HCL 2,250 MG in DEXTROSE 5% 500 ML IV ONE (14:44)
[2024-09-20] MEDS: PANTOprazole 40 MG/10 ML SYR IV SCH (14:44)
--- NOTE | 2024-09-20 15:22 | Critical Care Consultation ---
Date of Consultation September 20, 2024 Assessment & Plan (1) Volume depletion, gastrointestinal loss: PLAN: Neuro: History testicular cancer -In remission Resp: Tachypnea improved CV: Hypotension resolved -Generous crystalloid volume expansion -Weaned vasoactive medication Fluids/Renal: Acute kidney injury -Most consistent with prerenal etiology -Normal saline infusion at 125 mL/h ID: Gastroenteritis -Doubtful sepsis and anticipate this is severe volume depletion/dehydration from gastrointestinal losses GI/Nutrition: Gastroenteritis -Initially given broad-spectrum antibiotics in the ED. Given the profound hemoconcentration and lack of other additional constitutional symptoms I feel this is related to significant volume depletion. No need to continue broad-spectrum antibiotics at this time -Clear liquids as tolerated -Small bowel obstruction extremely unlikely based on my clinical exam and patient's reported symptom improvement -Awaiting stool bio fire Heme: Hemoconcentration DVT prophylaxis: Heparin 5000 twice daily Endocrine: ICU hyperglycemia protocol Vascular access: Peripheral IVs, patient's weaning vasoactive's, anticipate that he will have less than 12 hours of vasoactive medication administration Code Status: Full code Disposition: ICU for vasoactive medication requirement which is decreasing. (2) Lactic acid acidosis: (3) CHYNA (acute kidney injury): (4) Hypotension: (5) Diarrhea: (6) History of testicular cancer: Supervising Physician Co-Signing Physician Notes I have personally spent 35 minutes of critical care time in the direct management of this patient. This is a life/limb threatening event. This includes time spent evaluating patient, direct bedside care, chart review, placing orders, interpretation of diagnostic studies, discussion with consultants, patient, and/or family members regarding treatment decisions, as well as other required patient management activities. This time is exclusive of all separately billable procedures, and teaching time and separate from and in addition to any other critical care service time. History of Present Illness Reason for Consultation: Sepsis Requesting Physician: Valente History of Present Illness Patient is a 39-year-old female with past medical history of testicular cancer who underwent chemo and radiation who presented to the emergency department with C complaint of cramping vomiting and diarrhea. In the emergency department he was found to be hypotensive, in discussion with staff he received 1 L of fluid and was significantly hypotensive and started on Levophed. Initial labs demonstrated a mild lactic acidosis which has since resolved. During my evaluation patient states his abdominal cramping is significantly improved and he feels significantly better. Allergies Allergy/AdvReac Type Severity Reaction Status Date / Time No Known Allergies Allergy Unknown ` Verified 01/07/24 10:51 Home Medications Medication Instructions Recorded Confirmed Type clobetasol 0.05 % scalp solution 1 applic topical BID #50 mL 08/29/23 09/20/24 Rx clobetasol 0.05 % topical cream 1 applic topical BID #30 grams 08/29/23 09/20/24 Rx fenofibrate nanocrystallized 48 mg 48 mg PO DAILY #30 tabs 04/16/24 09/20/24 Rx tablet escitalopram oxalate 10 mg tablet 0 mg PO DAILY 09/20/24 09/20/24 History rosuvastatin 20 mg tablet 0 mg PO DAILY 09/20/24 09/20/24 History triamcinolone acetonide 0.1 % 1 applic topical BID 09/20/24 09/20/24 History topical cream Patient History Family History Other Colorectal cancer Denies family history of Prostate cancer Breast cancer Social History (Updated 01/07/24 @ 10:58 by Meche Pryor LPN) Smoking Status: Never smoker Second Hand Exposure: No; Do You Dip or Chew Tobacco: Yes (process of quitting); Hx Alcohol Use: Yes Alcohol type: beer Alcohol Intake Frequency: 4 or More x per/Week Alcohol Intake Frequency Comment: case of beer in a week Hx Substance Use: No Preferred Language: Wolof [employer] Equipment Tender Required: No marital status: Current Living Situation: Spouse current occupational status: employed current occupation: [employer] Feels Safe at Home: Yes Childhood Exposure to Second-Hand Smoke: No Diet: regular caffeine: No Dental Care, Regularly: Yes Physical Activity Frequency: Daily Seatbelt Use: always Sunscreen Use: No Assistive Devices: None Physical Exam Physical Exam: General: Alert. nontoxic. Skin: Warm, dry, Head: Atraumatic Ears, nose, mouth and throat: airway patent Cardiovascular: Normal peripheral perfusion Respiratory: no respiratory distress Gastrointestinal: Non distended, soft, negative Ros Vigue's negative obturator, no discomfort with deep palpation, this is a nonsurgical abdomen. Musculoskeletal: No deformity Results & Data Results & Data Vital Signs (Past 12 Hours) Vital Signs Temp Pulse Pulse Resp BP BP Pulse Ox 09/20/24 15:10 92 H 23 70/52 L 95 09/20/24 14:50 91 H 22 101/59 L 95 09/20/24 14:40 91 H 22 91/59 L 97 09/20/24 14:30 89 33 H 100/54 L 99 09/20/24 14:30 92 H 17 100/54 L 99 09/20/24 14:21 91 H 25 H 100/51 L 97 09/20/24 14:00 101/54 L 09/20/24 14:00 90 34 H 101/54 L 97 09/20/24 13:51 89 32 H 81/52 L 97 09/20/24 13:51 89 32 H 97 09/20/24 13:40 85 19 87/52 L 98 09/20/24 13:35 84 28 H 98/60 L 98 09/20/24 13:33 84 40 H 98 09/20/24 13:32 85 23 74/51 L 99 09/20/24 13:25 86 24 87/59 L 100 09/20/24 13:20 87 22 89/61 L 100 09/20/24 13:16 36.5 C 85 28 H 90/53 L 98 09/20/24 13:12 85 38 H 100 09/20/24 13:09 85 33 H 100 09/20/24 13:06 83/51 L 09/20/24 13:06 83/51 L 09/20/24 13:06 83/51 L 09/20/24 13:06 83/51 L 09/20/24 13:06 85 25 H 83/51 L 100 09/20/24 13:03 89/60 L 09/20/24 13:03 86 26 H 89/60 L 100 09/20/24 13:01 87 20 100 09/20/24 13:00 86 22 92/62 L 100 09/20/24 12:50 85 23 79/42 L 100 09/20/24 12:41 84 27 H 79/45 L 100 09/20/24 12:30 84 24 75/50 L 100 09/20/24 12:25 82 23 81/52 L 98 09/20/24 12:14 87 25 H 73/46 L 99 09/20/24 11:40 94 H 09/20/24 11:27 36.4 C L 103 H 20 110/43 L 93 O2 Del Method 09/20/24 15:10 Room Air 09/20/24 14:50 09/20/24 14:40 Room Air 09/20/24 14:30 09/20/24 14:30 09/20/24 14:21 Room Air 09/20/24 14:00 09/20/24 14:00 Room Air 09/20/24 13:51 09/20/24 13:51 09/20/24 13:40 Room Air 09/20/24 13:35 Room Air 09/20/24 13:33 09/20/24 13:32 Room Air 09/20/24 13:25 Room Air 09/20/24 13:20 Room Air 09/20/24 13:16 Room Air 09/20/24 13:12 09/20/24 13:09 09/20/24 13:06 09/20/24 13:06 09/20/24 13:06 09/20/24 13:06 09/20/24 13:06 Room Air 09/20/24 13:03 09/20/24 13:03 Room Air 09/20/24 13:01 Room Air 09/20/24 13:00 Room Air 09/20/24 12:50 Room Air 09/20/24 12:41 09/20/24 12:30 Room Air 09/20/24 12:25 Room Air 09/20/24 12:14 Room Air 09/20/24 11:40 09/20/24 11:27 Room Air Critical Care Results & Data Vital Signs (Past 12 Hours) Vital Signs Temp Pulse Pulse Resp BP BP Pulse Ox 09/20/24 15:10 92 H 23 70/52 L 95 09/20/24 14:50 91 H 22 101/59 L 95 09/20/24 14:40 91 H 22 91/59 L 97 09/20/24 14:30 89 33 H 100/54 L 99 09/20/24 14:30 92 H 17 100/54 L 99 09/20/24 14:21 91 H 25 H 100/51 L 97 09/20/24 14:00 101/54 L 09/20/24 14:00 90 34 H 101/54 L 97 09/20/24 13:51 89 32 H 81/52 L 97 09/20/24 13:51 89 32 H 97 09/20/24 13:40 85 19 87/52 L 98 09/20/24 13:35 84 28 H 98/60 L 98 09/20/24 13:33 84 40 H 98 09/20/24 13:32 85 23 74/51 L 99 09/20/24 13:25 86 24 87/59 L 100 09/20/24 13:20 87 22 89/61 L 100 09/20/24 13:16 36.5 C 85 28 H 90/53 L 98 09/20/24 13:12 85 38 H 100 09/20/24 13:09 85 33 H 100 09/20/24 13:06 83/51 L 09/20/24 13:06 83/51 L 09/20/24 13:06 83/51 L 09/20/24 13:06 83/51 L 09/20/24 13:06 85 25 H 83/51 L 100 09/20/24 13:03 89/60 L 09/20/24 13:03 86 26 H 89/60 L 100 09/20/24 13:01 87 20 100 09/20/24 13:00 86 22 92/62 L 100 09/20/24 12:50 85 23 79/42 L 100 09/20/24 12:41 84 27 H 79/45 L 100 09/20/24 12:30 84 24 75/50 L 100 09/20/24 12:25 82 23 81/52 L 98 09/20/24 12:14 87 25 H 73/46 L 99 09/20/24 11:40 94 H 09/20/24 11:27 36.4 C L 103 H 20 110/43 L 93 O2 Del Method 09/20/24 15:10 Room Air 09/20/24 14:50 09/20/24 14:40 Room Air 09/20/24 14:30 09/20/24 14:30 09/20/24 14:21 Room Air 09/20/24 14:00 09/20/24 14:00 Room Air 09/20/24 13:51 09/20/24 13:51 09/20/24 13:40 Room Air 09/20/24 13:35 Room Air 09/20/24 13:33 09/20/24 13:32 Room Air 09/20/24 13:25 Room Air 09/20/24 13:20 Room Air 09/20/24 13:16 Room Air 09/20/24 13:12 09/20/24 13:09 09/20/24 13:06 09/20/24 13:06 09/20/24 13:06 09/20/24 13:06 09/20/24 13:06 Room Air 09/20/24 13:03 09/20/24 13:03 Room Air 09/20/24 13:01 Room Air 09/20/24 13:00 Room Air 09/20/24 12:50 Room Air 09/20/24 12:41 09/20/24 12:30 Room Air 09/20/24 12:25 Room Air 09/20/24 12:14 Room Air 09/20/24 11:40 09/20/24 11:27 Room Air Lab & Micro Results (Past 24 Hours) RBC 5.20 M/uL (4.70-6.10) 09/20/24 WBC 15.67 K/ul (4.8-10.8) H 09/20/24 Hgb 18.0 g/dl (14.0-18.0) 09/20/24 Hct 52.1 % (42.0-52.0) H 09/20/24 MCV 100.2 fL (80.0-100.0) H 09/20/24 MCH 34.6 pg (25.0-34.0) H 09/20/24 MCHC 34.5 g/dL (32.0-36.0) 09/20/24 RDW Standard Deviation 43.9 fL (36.4-46.3) 09/20/24 RDW Coefficient of Variation 11.8 % (11.5-14.5) 09/20/24 Plt Count 181 K/uL (130-400) 09/20/24 MPV 9.9 fL (9.4-12.4) 09/20/24 Neutrophils (%) (Auto) 81.0 % 09/20/24 Lymphocytes (%) (Auto) 10.7 % 09/20/24 Monocytes # (Auto) 0.94 K/uL (0.11-0.59) H 09/20/24 Eosinophils # (Auto) 0.23 K/uL (0.00-0.50) 09/20/24 Immature Granulocyte % (Auto) 0.5 % 09/20/24 Neutrophils # (Auto) 12.69 K/uL (1.40-6.50) H 09/20/24 Lymphocytes # (Auto) 1.68 K/uL (1.20-3.40) 09/20/24 Monocytes # (Auto) 0.94 K/uL (0.11-0.59) H 09/20/24 Eosinophils # (Auto) 0.23 K/uL (0.00-0.50) 09/20/24 Basophils # (Auto) 0.05 K/uL (0.00-0.20) 09/20/24 Immature Granulocyte # (Auto) 0.08 K/uL (0.01-0.20) 4 Toxic Vacuolation 2+ 09/20/24 Na 137 mmol/L (136-145) 09/20/24 K 4.3 mmol/L (3.5-5.1) 09/20/24 Cl 92 mmol/L (98-107) L 09/20/24 CO2 18 mmol/L (21-32) L 09/20/24 Anion Gap 27 (3-11) H 09/20/24 BUN 48 mg/dl (6-23) H 09/20/24 Creatinine 4.03 mg/dl (0.6-1.4) H 09/20/24 BUN/Creatinine Ratio 11.9 (10-20) 09/20/24 Glu 110 mg/dl (70-99(Fasting)) H 09/20/24 Ca 9.9 mg/dl (8.6-10.3) 09/20/24 Total Bilirubin 3.5 mg/dl (0.2-1.0) H 09/20/24 AST 179 U/L (13-39) H 09/20/24 ALT 89 U/L (7-52) H 09/20/24 Alkaline Phosphatase 60 U/L (34-104) 09/20/24 TP 7.9 gm/dl (6.0-8.3) 09/20/24 Albumin 4.5 gm/dl (3.4-5.0) 09/20/24 Globulin 3.4 gm/dl (2.5-4.0) 09/20/24 Albumin/Globulin Ratio 1.3 (0.9-2) 09/20/24 Calcium Level 9.9 mg/dl (8.6-10.3) 09/20/24 11:42 Diagnostic Findings (Past 24 Hours) Chest CT 09/20/24 11:48 CT chest diagnostic wo con, CT abd pelvis wo con CT DOSE: 2266.86 mGy.cm CLINICAL HISTORY: 39 years-old Male with Hypotension, sob. Acute chest and abdominal pain TECHNIQUE: Multiaxial CT images of the chest, abdomen and pelvis were performed without contrast. A dose lowering technique was utilized adhering to the principles of ALARA. COMPARISON: CT abdomen and pelvis 08/22/2010, CTA chest 04/26/2010 FINDINGS: CT CHEST: Unremarkable thyroid. Heart is normal in size without pericardial effusion. No thoracic aortic aneurysm. Moderate gynecomastia. Moderate right hemidiaphragmatic elevation. Subsegmental right basilar scarring/atelectasis again noted. Unremarkable soft tissues. No acute fracture. CT ABDOMEN/PELVIS: No pneumoperitoneum. Unremarkable unenhanced spleen, pancreas and adrenal glands. Hepatic steatosis. Surgically absent gallbladder. Unremarkable kidneys without hydronephrosis. Decompressed bladder with wall thickening. Abdominal pelvic varicosities are noted. Surgical clips within the right abdomen with small bowel anastomotic sutures. A few loops of small bowel demonstrates circumferential wall thickening with adjacent inflammatory stranding. No high-grade small bowel obstruction. Several intra-abdominal hernias are noted, one of which partially contains a loop of bowel on image 205 series 7. Dilated loop of bowel image 100 measures 3.9 cm transversely. No drainable fluid collections. No acute fracture. IMPRESSION: 1. No acute process of the chest. 2. Several loops of small bowel demonstrate circumferential wall thickening with interloop edema suggestive of a nonspecific enteritis. A single loop is mildly dilated as well. A partial small bowel obstruction considered less likely. 3. No pneumoperitoneum. 4. Additional findings as above. ACT 112: Negative or not required by law. Electronically signed by: Jose J Deutsch M.D. 09/20/2024 1:25 PM Abdomen/Pelvis CT 09/20/24 11:49 CT chest diagnostic wo con, CT abd pelvis wo con CT DOSE: 2266.86 mGy.cm CLINICAL HISTORY: 39 years-old Male with Hypotension, sob. Acute chest and abdominal pain TECHNIQUE: Multiaxial CT images of the chest, abdomen and pelvis were performed without contrast. A dose lowering technique was utilized adhering to the principles of ALARA. COMPARISON: CT abdomen and pelvis 08/22/2010, CTA chest 04/26/2010 FINDINGS: CT CHEST: Unremarkable thyroid. Heart is normal in size without pericardial effusion. No thoracic aortic aneurysm. Moderate gynecomastia. Moderate right hemidiaphragmatic elevation. Subsegmental right basilar scarring/atelectasis again noted. Unremarkable soft tissues. No acute fracture. CT ABDOMEN/PELVIS: No pneumoperitoneum. Unremarkable unenhanced spleen, pancreas and adrenal glands. Hepatic steatosis. Surgically absent gallbladder. Unremarkable kidneys without hydronephrosis. Decompressed bladder with wall thickening. Abdominal pelvic varicosities are noted. Surgical clips within the right abdomen with small bowel anastomotic sutures. A few loops of small bowel demonstrates circumferential wall thickening with adjacent inflammatory stranding. No high-grade small bowel obstruction. Several intra-abdominal hernias are noted, one of which partially contains a loop of bowel on image 205 series 7. Dilated loop of bowel image 100 measures 3.9 cm transversely. No drainable fluid collections. No acute fracture. IMPRESSION: 1. No acute process of the chest. 2. Several loops of small bowel demonstrate circumferential wall thickening with interloop edema suggestive of a nonspecific enteritis. A single loop is mildly dilated as well. A partial small bowel obstruction considered less likely. 3. No pneumoperitoneum. 4. Additional findings as above. ACT 112: Negative or not required by law. Electronically signed by: Jose J Deutsch M.D. 09/20/2024 1:25 PM I & O Totals 24 Hours 09/19/24 09/20/24 09/21/24 06:59 06:59 06:59 Intake Total 1166.697 / 1166.697 Balance 1166.697 / 1166.697 Cumulative 09/20/24 11:21 thru 09/20/24 15:27 Intake Total 1166.697 Balance 1166.697 RT Ventilator Mngmt (Last Documented) Ventilator Ordered Settings Respiratory Rate 23 09/20/24 15:10 Ventilator - PT Measurements Respiratory Rate 23 Coding Level of Care Code 04900 CRITICAL CARE 1ST 30-74M Diagnoses Volume depletion, gastrointestinal loss E86.9 Lactic acid acidosis E87.20 CHYNA (acute kidney injury) N17.9 Other specified hypotension I95.89 Hypotension type: other hypotension type Diarrhea R19.7 History of testicular cancer Z85.47 (4) Hypotension Hypotension type: other hypotension type Qualified Code(s): I95.89 - Other hypotension
[2024-09-20] MEDS: SODIUM CHLORIDE 0.9% 1,000 ML IV ONE (15:32)
[2024-09-20] MEDS: STAT IV Infusion **Titration per Protocol STA (15:32)
[2024-09-20] MEDS: HYDROCORTISONE SOD SUCCINATE 100 MG/2 ML VIAL IV STA (15:48)
[2024-09-20] MEDS ORDERED: ONDANSETRON INJ 2 MG/ML 2 ML VIAL IV PRN (15:55)
[2024-09-20] MEDS ORDERED: ACETAMINOPHEN 325 MG TAB PO PRN (15:55)
[2024-09-20] MEDS: PIPERACILLIN/TAZOBACTAM 4.5 GM/100 ML BAG IV SCH (20:23)
[2024-09-20] MEDS: HEPARIN SOD 5,000 UNIT/0.5 ML VIAL SQ SCH (20:23)
[2024-09-20 22:09] LABS: Appearance Urine Cloudy (Clear); Bacteria Urine Automated None Seen (None Seen); Bilirubin Urine Negative (Negative); Blood Urine 3+ (Negative); Color Urine Yellow; Epithelial Cell Urine Auto 0-2 /hpf (0-2); Glucose Urine UA Negative (Negative); Ketones Urine Negative (Negative); Leukocyte Esterase Urine Negative (Negative); Nitrite Urine Negative (Negative); Protein Urine 1+ (Negative); RBC Urine Automated 0-2 /hpf (0-2); Specific Gravity Urine 1.006 (1.000-1.030); Urobilinogen Urine Negative (Negative); WBC Urine Automated 0-5 /hpf (0-5)
[2024-09-21 05:12] LABS: Albumin Globulin Ratio 1.3 (0.9-2); Albumin Level 3.2 gm/dl (3.4-5.0); BUN Creatinine Ratio 17.5 (10-20); Bilirubin,Total 1.3 mg/dl (0.2-1.0); Calcium 7.5 mg/dl (8.6-10.3); Creatinine Clr Calc Pharmacy 39.7 ml/min; Globulin 2.4 gm/dl (2.5-4.0); Hematocrit (blood only) 39.1 % (42.0-52.0); Hemoglobin 13.2 g/dl (14.0-18.0); Magnesium 1.8 mg/dl (1.7-2.4); Mean Corpuscular Hemoglobin 34.2 pg (25.0-34.0); Mean Corpuscular Hgb Conc 33.8 g/dL (32.0-36.0); Mean Corpuscular Volume 101.3 fL (80.0-100.0); Mean Platelet Volume 9.5 fL (9.4-12.4); Platelet Count 117 K/uL (130-400); Potassium 3.8 mmol/L (3.5-5.1); RDW Coefficient of Variation 11.8 % (11.5-14.5); RDW Standard Deviation 43.8 fL (36.4-46.3); Red Blood Count 3.86 M/uL (4.70-6.10); Total Protein 5.6 gm/dl (6.0-8.3); White Blood Count 8.84 K/ul (4.8-10.8)
[2024-09-21] MEDS: MAGNESIUM SULFATE / D5W 1 GM/100 ML BAG IV SCH (06:16)
--- NOTE | 2024-09-21 08:13 | Critical Care Progress Note ---
Date of Service September 21, 2024 Assessment & Plan (1) CHYNA (acute kidney injury): (2) Shock circulatory: (3) Abdominal pain: (4) Elevated LFTs: (5) History of testicular cancer: (6) HLD (hyperlipidemia): (7) Psoriasis: (8) Vomiting: Plan Critically ill: 39-year-old male presented to the hospital for abdominal pain nausea and vomiting. Was found to be hypotensive with CHYNA. Sent to ICU for further management PLAN: Neuro: CAM ICU: Negative -- Does drink alcohol up to 2-4 beers on a daily basis Will put him on as needed [facility] protocol Give the patient thiamine and folic acid Resp: -- No acute issues Saturating well on room air CT chest 09/20/2024 personally reviewed: Elevated right hemidiaphragm with linear atelectasis Calcification of the pleura of the right diaphragm Motion degraded study No significant mediastinal lymphadenopathy CV: --S/p hypotension Continue with IV fluids especially given rhabdomyolysis Fluids/Renal: --Rhabdomyolysis CPK > 1600 Likely secondary to fall Continue with IV fluids -- Acute kidney injury --> improving -Most consistent with prerenal etiology Monitor BUN/creatinine, avoid nephrotoxic medication ID: -- Gastroenteritis -Continue with antibiotics for total of 5-7 days GI/Nutrition: --Transaminitis Secondary to hypotensive episode, probable alcohol use as well Continue to trend -- Partial small bowel obstruction Unlikely Heme: --Macrocytic anemia Likely from alcohol use Monitor H&H Start the patient on thiamine and folic acid on a daily basis --New onset thrombocytopenia Continue to trend --History of testicular cancer S/p chemo In remission right now Endocrine: ICU hyperglycemia protocol --Prophylaxis VTE: Heparin GI: None Lines: Peripheral Diet: Clear liquids, advance as tolerated Plan: In/out: +2.9 L, urine output 2526 Potassium being replaced along with magnesium Hyperphosphatemia is most likely from rhabdomyolysis. Continue to trend Increase IV fluid to 150 mL an hour. Changed to Plasma-Lyte after the current bag of normal saline is done Follow-up stool BioFire. Continue with antibiotics for 5 days for possible enterocolitis. [facility] protocol for history of alcohol use. Start the patient on thiamine and folic acid New onset thrombocytopenia, could be from underlying sepsis as well as history of alcohol use. Continue to trend There has been drop in hemoglobin which is most likely from IV fluids as well as at presentation patient was hemoconcentrated. Repeat H&H later today Hemodynamically stable to be downgrade to medical floor Please note the above document was generated using voice recognition software. It may contain grammatical, syntax or spelling errors.Any formal questions or concerns about the content, text or information contained within the body of this dictation should be directly addressed to the provider for clarification. Admission and Anticipated Discharge Date Admission Date: September 20, 2024 Subjective Patient seen and examined at bedside. No acute distress, no adverse events overnight Systolic blood pressure was in the high 100, MAP 75 Denies any nausea or vomiting. Did have a bowel movement today which was loose/watery. No abdominal pain Had a fall before coming to the hospital, denied any dizziness or blurry vision before the fall. The fall was not mechanical. No palpitation prior to the fall. Has been off Levophed since midnight. Review of Systems 2 Review of Systems: All systems reviewed & are unremarkable except as noted in Subjective Physical Exam 2 Physical Exam: Constitutional: No acute distress, flushed skin HEENT: EOMI, PERRLA Respiratory system: Good air entry bilaterally, no wheeze, no rhonchi, no crackles CVS: S1-S2 positive, no murmurs or gallops Abdomen: Soft, nontender, nondistended, positive bowel sounds x4 Extremities: +2 pulses bilaterally radialis/ dorsalis pedis, no cyanosis, no edema Neuro: Awake alert oriented x3 Psych: Normal mood and affect G/U: No Estrada Skin: Erythematous lesions appreciated on the dorsal surface of bilateral arms with excoriations, there is excoriation/abrasion in the right lower extremity medial aspect below the knee. Lymphatic: no cervical or axillary lymphadenopathy Results & Data Results & Data Vital Signs (Past 12 Hours) Vital Signs Temp Pulse Resp BP Pulse Ox 09/21/24 06:30 78 19 93 09/21/24 06:21 76 19 92 09/21/24 06:05 99/60 L 09/21/24 06:03 71 21 93 09/21/24 06:00 36.8 C 09/21/24 05:45 77 19 94 09/21/24 05:05 93/54 L 09/21/24 05:03 73 28 H 98 09/21/24 04:36 83 24 97 09/21/24 04:36 105/72 09/21/24 04:36 105/72 09/21/24 04:36 105/72 09/21/24 04:17 92/63 L 09/21/24 04:17 92/63 L 09/21/24 04:17 92/63 L 09/21/24 04:00 75 25 H 95 09/21/24 04:00 36.7 C 09/21/24 03:57 74 24 94 09/21/24 03:27 78 18 93 09/21/24 03:05 95/54 L 09/21/24 03:05 95/54 L 09/21/24 03:05 95/54 L 09/21/24 03:00 75 18 93 09/21/24 02:21 96 H 19 97 09/21/24 02:21 84/45 L 09/21/24 02:21 84/45 L 09/21/24 02:21 84/45 L 09/21/24 02:05 100/58 L 09/21/24 02:03 78 21 94 09/21/24 02:00 74 19 93 09/21/24 02:00 36.7 C 09/21/24 01:36 98/55 L 09/21/24 01:30 80 20 92 09/21/24 01:20 99/62 L 09/21/24 01:20 99/62 L 09/21/24 01:09 80 25 H 92 09/21/24 01:06 82 19 91 09/21/24 01:05 98/53 L 09/21/24 01:05 98/53 L 09/21/24 00:54 80 20 94 09/21/24 00:51 82 18 95 09/21/24 00:50 98/56 L 09/21/24 00:50 98/56 L 09/21/24 00:50 98/56 L 09/21/24 00:50 98/56 L 09/21/24 00:50 98/56 L 09/21/24 00:36 83 28 H 94 09/21/24 00:36 127/99 09/21/24 00:36 127/99 09/21/24 00:36 127/99 09/21/24 00:33 83 20 94 09/21/24 00:21 80 23 96 09/21/24 00:20 102/56 L 09/21/24 00:20 102/56 L 09/21/24 00:20 102/56 L 09/21/24 00:12 82 21 94 09/21/24 00:05 103/56 L 09/21/24 00:05 103/56 L 09/21/24 00:00 81 23 96 09/21/24 00:00 36.5 C 09/21/24 00:00 81 09/20/24 23:50 100/52 L 09/20/24 23:50 100/52 L 09/20/24 23:48 81 27 H 95 09/20/24 23:36 79 32 H 95 09/20/24 23:35 108/60 09/20/24 23:35 108/60 09/20/24 23:35 108/60 09/20/24 23:24 83 32 H 94 09/20/24 23:20 97/55 L 09/20/24 23:15 81 22 96 09/20/24 23:06 83 25 H 94 09/20/24 23:05 110/63 09/20/24 23:05 110/63 09/20/24 22:48 68 20 95 09/20/24 22:33 84 27 H 97 09/20/24 22:24 82 28 H 95 09/20/24 22:20 106/59 L 09/20/24 22:06 81 33 H 96 09/20/24 22:05 104/56 L 09/20/24 22:05 104/56 L 09/20/24 22:01 102/56 L 09/20/24 22:01 102/56 L 09/20/24 21:48 82 23 94 09/20/24 21:39 105/54 L 09/20/24 21:39 105/54 L 09/20/24 21:27 87 36 H 96 09/20/24 21:24 85 37 H 95 Laboratory Results 09/21/24 04:36 09/21/24 04:36 Coding Level of Care Code 59481 SUB INP/OBS CARE 3/50MIN Diagnoses CHYNA (acute kidney injury) N17.9 Shock circulatory R57.9 Abdominal pain R10.9 Elevated LFTs R79.89 History of testicular cancer Z85.47 HLD (hyperlipidemia) E78.5 Psoriasis L40.9 Vomiting R11.10
[2024-09-21] MEDS: ESCITALOPRAM OXALATE 10 MG TAB PO SCH (09:36)
[2024-09-21] MEDS ORDERED: LORazepam 1 MG TAB PO PRN (10:04)
[2024-09-21] MEDS: POTASSIUM CHLORIDE CRTAB 20 MEQ TABCR PO ONE (10:24)
[2024-09-21] MEDS: FOLIC ACID 1 MG TAB PO SCH (11:15)
[2024-09-21] MEDS: THIAMINE HCL 100 MG TAB PO SCH (11:15)
--- NOTE | 2024-09-21 13:45 | Electrocardiogram Report ---
Test Reason : Blood Pressure : */* mmHG Vent. Rate : 96 BPM Atrial Rate : 96 BPM P-R Int : 130 ms QRS Dur : 86 ms QT Int : 374 ms P-R-T Axes : 46 21 49 degrees QTcB Int : 472 ms Normal sinus rhythm Normal ECG When compared with ECG of 14-Apr-2010 13:25, Nonspecific T wave abnormality is no longer Present in Inferolateral leads Confirmed by Stephen Mejia ([id number]) on 09/21/2024 1:45:08 PM Referred By: REFERRED SELF Confirmed By: Stephen Mejia
[2024-09-21 14:47] LABS: Adenovirus F 40/41 PCR Not Detected (NotDetected); Astrovirus PCR Not Detected (NotDetected); Campylobacter PCR Not Detected (NotDetected); Cryptosporidium PCR Not Detected (NotDetected); Cyclospora cayetanensis PCR Not Detected (NotDetected); Entamoeba histolytica PCR Not Detected (NotDetected); Enteroaggregative E.coli(EAEC) Not Detected (NotDetected); Enteropathogenic E.coli (EPEC) Not Detected (NotDetected); Enterotoxigenic E.coli (ETEC) Not Detected (NotDetected); Giardia lamblia PCR Not Detected (NotDetected); Norovirus GI/GII PCR Not Detected (NotDetected); Plesiomonas shigelloides PCR Not Detected (NotDetected); Rotavirus A PCR Not Detected (NotDetected); Salmonella PCR Not Detected (NotDetected); Sapovirus PCR Not Detected (NotDetected); Shiga-like Toxin E.coli (STEC) Not Detected (NotDetected); Shigella/Enteroinvasive E.coli Not Detected (NotDetected); Vibrio cholerae PCR Not Detected (NotDetected); Vibrio species PCR Not Detected (NotDetected); Yersinia enterocolitica PCR Not Detected (NotDetected)
[2024-09-21] MEDS: LACTATED RINGER'S 1,000 ML IV SCH (14:51)
[2024-09-21 15:54] LABS: Hematocrit (blood only) 39.7 % (42.0-52.0); Hemoglobin 13.5 g/dl (14.0-18.0)
--- NOTE | 2024-09-21 22:06 | Hospitalist Progress Note ---
Date of Service September 21, 2024 Assessment & Plan (1) Vomiting: Plan: Hypovolemic shock: This is a 39-year-old gentleman with past medical history of anxiety, diarrhea, testicular cancer, hyperlipidemia who presented to the ED on 09/20/2024 with a chief complaint of vomiting. Currently, patient symptoms have resolved aside from profound hypotension. SIRS criteria met with pulse of 92, respirations 25, and WBC 15.67. CBC with leukocytosis of 15.67, hgb 18 CMP with creatinine of 4.03, stable electrolytes LFTs elevated w/ TB of 3.5, AST/ALT 179/89, DB 0.2 continue to trend LFTs - if they remain elevated and kidney function improves, consider repeat CTAP w/ contrast. Lactate initial of 5 with repeat at 1.7 Lipase 23 Respiratory Biofire negative. GI Biofire ordere Urine culture ordered. Procalcitonin pending. CTAP: several loops of SB demonstrate circumferential wall thickening w/ interloop edema suggestive of nonspecific enteritis. single loop mildly dilated. partial SBO considered less likely. Chest CT: negative Maintain NPO status, allowed to have meds w/ sip of water Continue resuscitation with IVF Pressor support w/ Levophed in ED to get SBP >90. Currently on hold. Continue IV Zosyn/Vancomycin pending blood culture results Tylenol prn for pain or fever Zofran prn for nausea/vomiting AM CBC, CMP On 09/21 off pressors, downgrade from ICU. Now in PCU. clinically improving. continue IVF. likely from gastroenteritis, continue zosyn (2) Hypotension: Plan: Profound hypotension of 60/40 s/p 2L bolus of NSS, additional 1L given Levophed given in ED but held SBP >90 resolved. (3) Abdominal pain: Plan: see plan #1 Trend LFTs Pain currently resolved. (4) CHYNA (acute kidney injury): Plan: Creatinine 4.03 on admission etiology likely due to acute dehydration. s/p 2L bolus Additional 1L IVF and 1L bolus ordered. On 09/21, creatinine improve, now above 2 Plan Chronic conditions: Anxiety: Lexapro DVT prophylaxis: Heparin Code status: full Diet: NPO Disposition: PCU Case discussed with Dr. Victor at time of admission. Admission and Anticipated Discharge Date Admission Date: September 20, 2024 Subjective Patient reports feeling much better today. Reports no longer feeling nausea/vomiting. Patient also has decreased abdominal pain. Physical Exam Constitutional: WD/WN, vitals as above Eyes: PERRL, conjunctivae normal, anicteric sclerae Respiratory: normal respiratory effort, lungs clear to auscultation Cardiovascular: RRR, no murmur, no edema Gastrointestinal (Abdomen): + bowel sounds, negative for abdominal t enderness. Psychiatric: A+Ox3, euthymic affect Results & Data Results & Data Vital Signs (Past 12 Hours) Vital Signs Temp Pulse Pulse Resp BP BP BP 09/21/24 20:04 36.8 C 76 20 104/70 09/21/24 15:26 36.8 C 80 16 111/76 09/21/24 14:35 76 09/21/24 14:20 36.6 C 78 17 106/64 09/21/24 14:00 82 29 H 115/68 09/21/24 12:39 83 25 H 104/60 09/21/24 11:03 88 19 99/69 L 09/21/24 10:09 81 28 H 106/56 L Pulse Ox O2 Del Method 09/21/24 20:04 97 Room Air 09/21/24 15:26 98 Room Air 09/21/24 14:35 09/21/24 14:20 100 Room Air 09/21/24 14:00 94 Room Air 09/21/24 12:39 95 Room Air 09/21/24 11:03 97 Room Air 09/21/24 10:09 97 Room Air PG Care Time/CCT Total # of Minutes Spent Total Time Spent with Patient: Total time spent is greater than 50% in coordination of care (as documented) at patient's floor/unit and/or counseling patient: Coding Level of Care Code 99410 SUB INP/OBS CARE 3/50MIN Diagnoses Vomiting R11.10 Other specified hypotension I95.89 Hypotension type: other hypotension type Abdominal pain R10.9 CHYNA (acute kidney injury) N17.9 (2) Hypotension Hypotension type: other hypotension type Qualified Code(s): I95.89 - Other hypotension
[2024-09-22 08:47] LABS: BUN Creatinine Ratio 20.3 (10-20); C Reactive Protein 7.05 mg/dl (0-0.5); Calcium 8.4 mg/dl (8.6-10.3); Creatinine Clr Calc Pharmacy 91.7 ml/min; Hematocrit (blood only) 36.1 % (42.0-52.0); Hemoglobin 11.9 g/dl (14.0-18.0); Magnesium 2.2 mg/dl (1.7-2.4); Mean Corpuscular Hemoglobin 34.4 pg (25.0-34.0); Mean Corpuscular Volume 104.3 fL (80.0-100.0); Mean Platelet Volume 9.5 fL (9.4-12.4); Phosphorus 2.8 mg/dl (2.5-4.9); Platelet Count 98 K/uL (130-400); Platelet Estimate Decreased (Normal); Potassium 3.8 mmol/L (3.5-5.1); RDW Coefficient of Variation 11.8 % (11.5-14.5); RDW Standard Deviation 45.1 fL (36.4-46.3); Red Blood Count 3.46 M/uL (4.70-6.10); White Blood Count 6.03 K/ul (4.8-10.8)
[2024-09-22 10:37] LABS: Albumin Level 3.2 gm/dl (3.4-5.0); Bilirubin Direct 0.1 mg/dl (0-0.2); Bilirubin,Total 0.9 mg/dl (0.2-1.0); Total Protein 6.2 gm/dl (6.0-8.3)
--- NOTE | 2024-09-22 13:19 | Hospitalist Progress Note ---
Date of Service September 22, 2024 Assessment & Plan (1) CYHNA (acute kidney injury): (2) Septic shock: (3) Enteritis: (4) Elevated LFTs: (5) Rhabdomyolysis: (6) Thrombocytopenia: Plan 39-year-old male with past medical history of alcohol use, history of testicular cancer, hyperlipidemia on statin presented to the hospital with profound hypotension and watery diarrhea and was found to be in septic shock requiring pressors and ICU stay with acute kidney injury #Septic shock likely secondary to enteritis, present on admission #CHYNA #Rhabdomyolysis Patient required pressor support, IV fluid resuscitation and ICU stay He was empirically started on IV Zosyn Stool cultures so far have been negative Blood cultures have been negative at 48 hours He is off pressors CPK levels have improved: Hold statin Renal function has improved Stop IV Zosyn secondary to thrombocytopenia: Switch to oral Flagyl plus oral Levaquin Continue IV fluids, monitor renal function, electrolytes and CPK levels Avoid nephrotoxic agents including NSAIDs #Thrombocytopenia Likely in the setting of sepsis Hold heparin subcutaneous for DVT prophylaxis Stop Pepcid as it can cause thrombocytopenia Stop IV Zosyn as it can also exacerbate thrombocytopenia Monitor platelet count #Hyperlipidemia Hold statin for now in light of rhabdomyolysis #Alcohol use Alcohol cessation counseling provided Patient is not in withdrawal Continue thiamine plus folic acid plus multivitamin Outpatient follow-up with PCP #Anxiety/depression Continue Lexapro CODE STATUS: Full code DVT prophylaxis: Patient is ambulatory Admission and Anticipated Discharge Date Admission Date: September 20, 2024 Subjective Patient seen and examined at bedside Patient ambulating without any issues He denies any bleeding Patient states overall he feels better Denies any nausea, vomiting abdominal pain Diarrhea has improved: Still with loose stools but better formed than before Denies any urinary symptoms, fever, chills Review of Systems Review of Systems: Per subjective Physical Exam Physical Exam: General: No acute distress Psych: Awake and alert HEENT: Anicteric sclera, moist oral mucosa CVS: Regular rate and rhythm Lungs: Bilateral air entry, no wheezing noted Abdomen: Soft, nontender, no rebound, no guarding Ext: No lower extremity edema, no calf tenderness Neuro: No focal motor deficits noted Results & Data Results & Data Vital Signs (Past 12 Hours) Vital Signs Temp Pulse Pulse Resp BP Pulse Ox O2 Del Method 09/22/24 11:07 36.6 C 66 20 104/70 97 Room Air 09/22/24 08:01 36.5 C 74 20 115/79 96 Room Air 09/22/24 07:15 70 09/22/24 03:02 36.8 C 77 16 113/74 93 Room Air Laboratory Results Laboratory Results - last 24 hr 09/20/24 09/22/24 14:22 07:36 WBC 6.03 RBC 3.46 L Hgb 11.9 L Hct 36.1 L MCV 104.3 H MCH 34.4 H MCHC 33.0 RDW Std Deviation 45.1 RDW Coeff of Sarah 11.8 Plt Count 98 L MPV 9.5 Platelet Estimate Decreased L Sodium 144 Potassium 3.8 Chloride 114 H Carbon Dioxide 21 Anion Gap 9 BUN 24 H D Creatinine 1.18 D Est Cr Clr Drug Dosing 91.7 eGFR 80.00 BUN/Creatinine Ratio 20.3 H Glucose 109 H Calcium 8.4 L Phosphorus 2.8 D Magnesium 2.2 Total Bilirubin 0.9 Direct Bilirubin 0.1 AST 83 H ALT 63 H Alkaline Phosphatase 49 Total Creatine Kinase 502 H C-Reactive Protein 7.05 H Total Protein 6.2 Albumin 3.2 L Vitamin B12 364 Random Cortisol 6.[address] 09/20/24 11:48 CT chest diagnostic wo con, CT abd pelvis wo con CT DOSE: 2266.86 mGy.cm CLINICAL HISTORY: 39 years-old Male with Hypotension, sob. Acute chest and abdominal pain TECHNIQUE: Multiaxial CT images of the chest, abdomen and pelvis were performed without contrast. A dose lowering technique was utilized adhering to the principles of ALARA. COMPARISON: CT abdomen and pelvis 08/22/2010, CTA chest 04/26/2010 FINDINGS: CT CHEST: Unremarkable thyroid. Heart is normal in size without pericardial effusion. No thoracic aortic aneurysm. Moderate gynecomastia. Moderate right hemidiaphragmatic elevation. Subsegmental right basilar scarring/atelectasis again noted. Unremarkable soft tissues. No acute fracture. CT ABDOMEN/PELVIS: No pneumoperitoneum. Unremarkable unenhanced spleen, pancreas and adrenal glands. Hepatic steatosis. Surgically absent gallbladder. Unremarkable kidneys without hydronephrosis. Decompressed bladder with wall thickening. Abdominal pelvic varicosities are noted. Surgical clips within the right abdomen with small bowel anastomotic sutures. A few loops of small bowel demonstrates circumferential wall thickening with adjacent inflammatory stranding. No high-grade small bowel obstruction. Several intra-abdominal hernias are noted, one of which partially contains a loop of bowel on image 205 series 7. Dilated loop of bowel image 100 measures 3.9 cm transversely. No drainable fluid collections. No acute fracture. IMPRESSION: 1. No acute process of the chest. 2. Several loops of small bowel demonstrate circumferential wall thickening with interloop edema suggestive of a nonspecific enteritis. A single loop is mildly dilated as well. A partial small bowel obstruction considered less likely. 3. No pneumoperitoneum. 4. Additional findings as above. ACT 112: Negative or not required by law. Electronically signed by: Jose J Deutsch M.D. 09/20/2024 1:25 PM Abdomen/Pelvis CT 09/20/24 11:49 CT chest diagnostic wo con, CT abd pelvis wo con CT DOSE: 2266.86 mGy.cm CLINICAL HISTORY: 39 years-old Male with Hypotension, sob. Acute chest and abdominal pain TECHNIQUE: Multiaxial CT images of the chest, abdomen and pelvis were performed without contrast. A dose lowering technique was utilized adhering to the principles of ALARA. COMPARISON: CT abdomen and pelvis 08/22/2010, CTA chest 04/26/2010 FINDINGS: CT CHEST: Unremarkable thyroid. Heart is normal in size without pericardial effusion. No thoracic aortic aneurysm. Moderate gynecomastia. Moderate right hemidiaphragmatic elevation. Subsegmental right basilar scarring/atelectasis again noted. Unremarkable soft tissues. No acute fracture. CT ABDOMEN/PELVIS: No pneumoperitoneum. Unremarkable unenhanced spleen, pancreas and adrenal glands. Hepatic steatosis. Surgically absent gallbladder. Unremarkable kidneys without hydronephrosis. Decompressed bladder with wall thickening. Abdominal pelvic varicosities are noted. Surgical clips within the right abdomen with small bowel anastomotic sutures. A few loops of small bowel demonstrates circumferential wall thickening with adjacent inflammatory stranding. No high-grade small bowel obstruction. Several intra-abdominal hernias are noted, one of which partially contains a loop of bowel on image 205 series 7. Dilated loop of bowel image 100 measures 3.9 cm transversely. No drainable fluid collections. No acute fracture. IMPRESSION: 1. No acute process of the chest. 2. Several loops of small bowel demonstrate circumferential wall thickening with interloop edema suggestive of a nonspecific enteritis. A single loop is mildly dilated as well. A partial small bowel obstruction considered less likely. 3. No pneumoperitoneum. 4. Additional findings as above. ACT 112: Negative or not required by law. Electronically signed by: Jose J Deutsch M.D. 09/20/2024 1:25 PM PG Care Time/CCT Total # of Minutes Spent Total Time Spent with Patient: Total time spent is greater than 50% in coordination of care (as documented) at patient's floor/unit and/or counseling patient: Coding Level of Care Code 55573 SUB INP/OBS CARE 3/50MIN Diagnoses CHYNA (acute kidney injury) N17.9 Septic shock A41.9; R65.21 Enteritis K52.9 Elevated LFTs R79.89 Rhabdomyolysis M62.82 Thrombocytopenia D69.6
[2024-09-22] MEDS: levoFLOXacin 500 MG TAB PO STA (17:02)
[2024-09-22] MEDS: LACTATED RINGER'S 1,000 ML IV SCH (19:36)
[2024-09-22] MEDS: metroNIDAZOLE 500 MG TAB PO SCH (20:58)
[2024-09-22] MEDS: CYANOCOBALAMIN 1000 MCG/ML VIAL IM STA (20:59)
[2024-09-23 07:42] LABS: Basophils # (auto) 0.02 K/uL (0.00-0.20); Basophils % (auto) 0.4 %; Eosinophils # (auto) 0.08 K/uL (0.00-0.50); Eosinophils % (auto) 1.6 %; Hemoglobin 12.4 g/dl (14.0-18.0); Immature Granulocytes # (auto) 0.01 K/uL (0.01-0.20); Immature Granulocytes % (auto) 0.2 %; Lymphocytes # (auto) 1.07 K/uL (1.20-3.40); Lymphocytes % (auto) 21.8 %; Mean Corpuscular Hemoglobin 34.5 pg (25.0-34.0); Mean Corpuscular Hgb Conc 33.5 g/dL (32.0-36.0); Mean Corpuscular Volume 103.1 fL (80.0-100.0); Mean Platelet Volume 9.4 fL (9.4-12.4); Monocytes # (auto) 0.33 K/uL (0.11-0.59); Monocytes % (auto) 6.7 %; Neutrophils # (auto) 3.39 K/uL (1.40-6.50); Neutrophils % (auto) 69.3 %; Platelet Count 69 K/uL (130-400); RDW Coefficient of Variation 11.6 % (11.5-14.5); RDW Standard Deviation 44.1 fL (36.4-46.3); Red Blood Count 3.59 M/uL (4.70-6.10)
[2024-09-23 07:58] LABS: INR 1.1 (0.9-1.1); Prothrombin Time 11.5 Seconds (9.0-12.0)
[2024-09-23 08:00] LABS: Albumin Globulin Ratio 1.2 (0.9-2); Albumin Level 3.3 gm/dl (3.4-5.0); BUN Creatinine Ratio 15.6 (10-20); Bilirubin,Total 1.1 mg/dl (0.2-1.0); Calcium 9.3 mg/dl (8.6-10.3); Creatinine Clr Calc Pharmacy 112.5 ml/min; Globulin 2.8 gm/dl (2.5-4.0); Magnesium 1.4 mg/dl (1.7-2.4); Potassium 3.9 mmol/L (3.5-5.1); Total Protein 6.1 gm/dl (6.0-8.3)
[2024-09-23] MEDS: MAGNESIUM SULFATE / D5W 1 GM/100 ML BAG IV SCH (09:48)
[2024-09-23] MEDS: CEROVITE ADV FORMULA TAB PO SCH (09:52)
[2024-09-23] MEDS: VITAMIN B COMPLEX TAB PO SCH (09:52)
[2024-09-23] MEDS: levoFLOXacin 500 MG TAB PO SCH (10:07)
[2024-09-23 12:15] VITALS: RESP 16; TEMP 98.4; O2SAT 98
--- NOTE | 2024-09-23 14:10 | Discharge Summary ---
Discharge Summary Date of Service September 23, 2024 Principal Dx & Hospital Course #1 = Principal Diagnosis (1) CHYNA (acute kidney injury): (2) Septic shock: (3) Enteritis: (4) Elevated LFTs: (5) Rhabdomyolysis: (6) Thrombocytopenia: (7) Hypomagnesemia: Plan 39-year-old male with past medical history of alcohol use, history of testicular cancer, hyperlipidemia on statin presented to the hospital with profound hypotension and watery diarrhea and was found to be in septic shock requiring pressors and ICU stay with acute kidney injury #Septic shock likely secondary to enteritis, present on admission #CHYNA #Rhabdomyolysis Patient required pressor support, IV fluid resuscitation and ICU stay He was empirically started on IV Zosyn Stool cultures so far have been negative Blood cultures have been negative at 48 hours He is off pressors CPK levels have improved: Hold statin Renal function has improved He was initially treated with IV Zosyn which was stopped secondary to thrombocytopenia and switch to oral Levaquin plus Flagyl to finish a 5-day course of antibiotics Avoid nephrotoxic agents including NSAIDs IV fluids have been stopped, CPK levels have normalized, renal function has improved and is at baseline. Patient's diarrhea has improved: His stools are now well-formed Patient to follow-up with PCP as outpatient for lab check #Thrombocytopenia #Transaminitis/abnormal liver enzymes Likely in the setting of sepsis Pepcid, IV Zosyn and subcutaneous heparin was stopped Platelet count has dropped: No active bleeding CT of the abdomen did not show any liver abnormality INR is normal showing normal intrinsic function LFTs have been improving Outpatient follow-up with PCP for follow-up #Hyperlipidemia Hold statin for now in light of rhabdomyolysis Outpatient follow-up with PCP #Alcohol use Alcohol cessation counseling provided Patient is not in withdrawal Continue multivitamin plus B complex Outpatient follow-up with PCP #Anxiety/depression Continue Lexapro #Hypomagnesemia Magnesium levels 1.4 Likely from's significant amount of diarrhea Patient was given IV magnesium replacement Outpatient follow-up with PCP for lab check Patient seen and examined. He is ambulating without any issues. He is tolerating oral diet without any issues. I have gone over the discharge care plan including medications, follow-up with the patient and his was at the bedside in great detail and answered all their questions. This discharge took greater than 30 minutes to coordinate Admission HPI Per Admitting Provider This is a 39-year-old gentleman with past medical history of anxiety, diarrhea, testicular cancer, hyperlipidemia who presented to the ED on 09/20/2024 with a chief complaint of vomiting. The patient states that last night he had several episodes of vomiting along with diarrhea. He states that his last episode of emesis was around 10 PM last evening and his last episode of diarrhea was around midnight. He denies melena, hematochezia, or hematemesis. States that he had abdominal cramping as well throughout his abdomen. He denies any sick contacts. He denies eating anything unusual. He denies chest pain or shortness of breath today. Patient does state that last night he did have some periods of shortness of breath but this is since resolved. Denies any fevers or chills. Denies any lower extremity edema. Denies any urinary symptoms. Patient denies any recent alcohol use. He denies illicit substance use. Patient admits poor PO intake over last day. States he has not ate anything due to fear of vomiting again. States he has had little water to drink. While in the ED patient was found to be profoundly hypotensive (60/40) requiring Levophed. ED provider to place central line for continued pressor support. Blood pressure improving to 101/54 at time of my encounter. He was resting comfortably in bed with family at bedside. Discharge Exam General: No acute distress Psych: Awake and alert HEENT: Anicteric sclera, moist oral mucosa CVS: Regular rate and rhythm Lungs: Bilateral air entry, no wheezing noted Abdomen: Soft, nontender, no rebound, no guarding Ext: No lower extremity edema, no calf tenderness Neuro: No focal motor deficits noted Discharge Plan Discharge Items Patient Disposition: Home - Self-Care Reason For Visit: VOMITING Discharge Diagnosis: #Septic shock secondary to enteritis: Improved #Elevated/abnormal liver function tests #Rhabdomyolysis: Improving #Thrombocytopenia #Hypomagnesemia Activity: As commented below Activity Comment: As tolerated: Avoid strenuous exercise until you follow-up with your PCP fo Lifting: Wait until after follow-up appointment Exercise/Sports: Wait until after follow-up appointment Non-emergency contact: Primary Care Provider Call non-emergency contact if: you have any medication questions, your symptoms worsen and you have a fever Follow-up/Referrals: Allen Ferreira, [Primary Care Provider] - Diet: Regular, Low Fat and Other - See Diet Comment Diet Comment: Avoid fiber and dairy until stools are well-formed Addtl Attending Provider Instructions: DISCHARGE INSTRUCTION TO PATIENT/FAMILY: Follow-up with your primary care provider within 1 week regarding: Posthospital discharge, medication review, medication refills and follow-up on all your medical problems, LABS and return to work clearance Please take all your discharge medications, discharge information and discharge instructions to all your doctors appointments. Avoid all NSAIDs including ibuprofen, Motrin, Advil, Aleve, naproxen, meloxicam, Toradol, diclofenac Labs through PCP within 1 week: CBC, CMP, MG, VITAMIN D, HEPATITIS SCREEN FOR HEP A, B, C, CPK You were seen by wound care nurse who is suspecting you may have peripheral vascular disease: Please see your primary care provider for outpatient RONDA/PVR to assess for peripheral vascular disease. Avoid all alcohol and finish your full course of antibiotics as prescribed Do not drink any alcohol while taking metronidazole/Flagyl Do not do any strenuous exercises while taking levofloxacin as it may cause tendon rupture Pending Studies at Discharge: No Stand-Alone Forms: [facility], Work/School Release, Smoking Cessation Medications and DC Order Prescriptions: New levofloxacin 500 mg Tablet 500 mg PO DAILY@1100 Qty: 3 0RF Rx Instructions: Started on 09/24/2024 for 3 more days metronidazole 500 mg Tablet 500 mg PO TID Qty: 11 0RF Cerovite Senior 0.4 mg-300 mcg- 250 mcg Tablet 1 tab PO QAM Qty: 30 0RF Rx Instructions: AVAILABLE OVER THE COUNTER vitamin B complex [Vitamins B Complex] Capsule 1 cap PO QAM Qty: 30 0RF Rx Instructions: AVAILABLE OVER THE COUNTER Continued clobetasol 0.05 % cream 1 applic topical BID Qty: 30 2RF clobetasol 0.05 % solution 1 applic topical BID Qty: 50 2RF triamcinolone acetonide 0.1 % cream 1 applic topical BID escitalopram oxalate 10 mg tablet 0 mg PO DAILY Rx Instructions: Per pharmacy, last filled 06/2024 x30 day supply. Original Directions: 10mg by mouth daily Discontinued fenofibrate nanocrystallized 48 mg tablet 48 mg PO DAILY Qty: 30 11RF rosuvastatin 20 mg tablet 0 mg PO DAILY Rx Instructions: Per pharmacy, last filled 06/2024 x30 day supply. Original Directions: 20mg by mouth daily Discharge Orders: Discharge Order (Routine); Ordered 09/23/24 Ordered By: Charles Monaco Admission Data Admit Date/Time: 09/20/24 14:20 Attending Provider: Charles Monaco Admit Provider: Jase Victor Primary Care Provider: Allen Ferreira Other Providers: Abhilash Watson; Jase Victor Hospital Stay Data Consultations 09/20/24 14:20 Consult [place] Operator Routine 09/20/24 15:20 ED Decision to Admit Stat Procedures Performed Laboratory Results - last 72 hr 09/20/24 09/20/24 09/20/24 11:42 14:08 14:22 WBC RBC Hgb Hct MCV MCH MCHC RDW Std Deviation RDW Coeff of Sarah Plt Count MPV Immature Gran % (Auto) Neut % (Auto) Lymph % (Auto) Bath % (Auto) Eos % (Auto) Baso % (Auto) Neut # (Auto) Lymph # (Auto) Bath # (Auto) Eos # (Auto) Baso # (Auto) Immature Gran # (Auto) Platelet Estimate PT INR Sodium Potassium Chloride Carbon Dioxide Anion Gap BUN Creatinine Est Cr Clr Drug Dosing eGFR BUN/Creatinine Ratio Glucose Lactate 1.7 Calcium Phosphorus Magnesium Total Bilirubin Direct Bilirubin AST ALT Alkaline Phosphatase Total Creatine Kinase C-Reactive Protein Total Protein Albumin Globulin Albumin/Globulin Ratio Vitamin B12 Procalcitonin > 100.00 H Random Cortisol 6.57 Urine Color Urine Appearance Urine pH Ur Specific Darfur Urine Protein Urine Glucose (UA) Urine Ketones Urine Blood Urine Nitrite Urine Bilirubin Urine Urobilinogen Ur Leukocyte Esterase Urine WBC (Auto) Urine RBC (Auto) U Hyaline Cast (Auto) U Epithel Cells (Auto) Urine Bacteria (Auto) Nasal Screen MRSA (PCR) Stl C. cayetanensis PCR Stool Rotavirus A PCR Stl Adenov F 40/41 PCR Stool Astrovirus (PCR) Stool Campylobacter PCR Stool Cryptosporidium PCR Stl E.coli Shiga Tox PCR Stl Enterotoxigenic E PCR Stool EPEC (PCR) Stool EAEC (PCR) Stl E. histolytica PCR Stool Giardia Lamblia PCR Stool Salmonella PCR Stool Sapovirus (PCR) Stl P. shigelloides PCR Stl Shigella/EIEC PCR St Y.enterocolitica PCR Stool Vibrio (PCR) Stl Vibrio cholerae PCR Stl Norovirus GI/GII PCR 11/17/24 11/17/24 11/17/24 15:09 21:40 Unknown WBC RBC Hgb Hct MCV MCH MCHC RDW Std Deviation RDW Coeff of Sarah Plt Count MPV Immature Gran % (Auto) Neut % (Auto) Lymph % (Auto) Bath % (Auto) Eos % (Auto) Baso % (Auto) Neut # (Auto) Lymph # (Auto) Bath # (Auto) Eos # (Auto) Baso # (Auto) Immature Gran # (Auto) Platelet Estimate PT INR Sodium Potassium Chloride Carbon Dioxide Anion Gap BUN Creatinine Est Cr Clr Drug Dosing eGFR BUN/Creatinine Ratio Glucose Lactate 1.9 Calcium Phosphorus Magnesium Total Bilirubin Direct Bilirubin AST ALT Alkaline Phosphatase Total Creatine Kinase C-Reactive Protein Total Protein Albumin Globulin Albumin/Globulin Ratio Vitamin B12 Procalcitonin Random Cortisol Urine Color Yellow Urine Appearance Cloudy A Urine pH 5.0 Ur Specific Darfur 1.006 Urine Protein 1+ H Urine Glucose (UA) Negative Urine Ketones Negative Urine Blood 3+ H Urine Nitrite Negative Urine Bilirubin Negative Urine Urobilinogen Negative Ur Leukocyte Esterase Negative Urine WBC (Auto) 0-5 Urine RBC (Auto) 0-2 U Hyaline Cast (Auto) 6-10 H U Epithel Cells (Auto) 0-2 Urine Bacteria (Auto) None Seen Nasal Screen MRSA (PCR) Negative Stl C. cayetanensis PCR Stool Rotavirus A PCR Stl Adenov F 40/41 PCR Stool Astrovirus (PCR) Stool Campylobacter PCR Stool Cryptosporidium PCR Stl E.coli Shiga Tox PCR Stl Enterotoxigenic E PCR Stool EPEC (PCR) Stool EAEC (PCR) Stl E. histolytica PCR Stool Giardia Lamblia PCR Stool Salmonella PCR Stool Sapovirus (PCR) Stl P. shigelloides PCR Stl Shigella/EIEC PCR St Y.enterocolitica PCR Stool Vibrio (PCR) Stl Vibrio cholerae PCR Stl Norovirus GI/GII PCR 09/21/24 09/21/24 09/21/24 04:36 13:10 15:09 WBC 8.84 RBC 3.86 L Hgb 13.2 L D 13.5 L Hct 39.1 L 39.7 L MCV 101.3 H MCH 34.2 H MCHC 33.8 RDW Std Deviation 43.8 RDW Coeff of Sarah 11.8 Plt Count 117 L MPV 9.5 Immature Gran % (Auto) Neut % (Auto) Lymph % (Auto) Bath % (Auto) Eos % (Auto) Baso % (Auto) Neut # (Auto) Lymph # (Auto) Bath # (Auto) Eos # (Auto) Baso # (Auto) Immature Gran # (Auto) Platelet Estimate PT INR Sodium 142 Potassium 3.8 Chloride 113 H Carbon Dioxide 18 L Anion Gap 11 BUN 47 H Creatinine 2.68 H D Est Cr Clr Drug Dosing 39.7 eGFR 29.89 BUN/Creatinine Ratio 17.5 Glucose 105 H Lactate Calcium 7.5 L D Phosphorus 6.0 H Magnesium 1.8 Total Bilirubin 1.3 H D Direct Bilirubin AST 130 H ALT 67 H Alkaline Phosphatase 41 Total Creatine Kinase 1695 H C-Reactive Protein Total Protein 5.6 L D Albumin 3.2 L Globulin 2.4 L Albumin/Globulin Ratio 1.3 Vitamin B12 Procalcitonin Random Cortisol Urine Color Urine Appearance Urine pH Ur Specific Darfur Urine Protein Urine Glucose (UA) Urine Ketones Urine Blood Urine Nitrite Urine Bilirubin Urine Urobilinogen Ur Leukocyte Esterase Urine WBC (Auto) Urine RBC (Auto) U Hyaline Cast (Auto) U Epithel Cells (Auto) Urine Bacteria (Auto) Nasal Screen MRSA (PCR) Stl C. cayetanensis PCR Not Detected Stool Rotavirus A PCR Not Detected Stl Adenov F 40/41 PCR Not Detected Stool Astrovirus (PCR) Not Detected Stool Campylobacter PCR Not Detected Stool Cryptosporidium PCR Not Detected Stl E.coli Shiga Tox PCR Not Detected Stl Enterotoxigenic E PCR Not Detected Stool EPEC (PCR) Not Detected Stool EAEC (PCR) Not Detected Stl E. histolytica PCR Not Detected Stool Giardia Lamblia PCR Not Detected Stool Salmonella PCR Not Detected Stool Sapovirus (PCR) Not Detected Stl P. shigelloides PCR Not Detected Stl Shigella/EIEC PCR Not Detected St Y.enterocolitica PCR Not Detected Stool Vibrio (PCR) Not Detected Stl Vibrio cholerae PCR Not Detected Stl Norovirus GI/GII PCR Not Detected 09/22/24 09/23/24 07:36 07:00 WBC 6.03 4.90 RBC 3.46 L 3.59 L Hgb 11.9 L 12.4 L Hct 36.1 L 37.0 L MCV 104.3 H 103.1 H MCH 34.4 H 34.5 H MCHC 33.0 33.5 RDW Std Deviation 45.1 44.1 RDW Coeff of Sarah 11.8 11.6 Plt Count 98 L 69 L MPV 9.5 9.4 Immature Gran % (Auto) 0.2 Neut % (Auto) 69.3 Lymph % (Auto) 21.8 Bath % (Auto) 6.7 Eos % (Auto) 1.6 Baso % (Auto) 0.4 Neut # (Auto) 3.39 Lymph # (Auto) 1.07 L Bath # (Auto) 0.33 Eos # (Auto) 0.08 Baso # (Auto) 0.02 Immature Gran # (Auto) 0.01 Platelet Estimate Decreased L PT 11.5 INR 1.1 Sodium 144 146 H Potassium 3.8 3.9 Chloride 114 H 114 H Carbon Dioxide 21 24 Anion Gap 9 8 BUN 24 H D 15 Creatinine 1.18 D 0.96 Est Cr Clr Drug Dosing 91.7 112.5 eGFR 80.00 102.47 BUN/Creatinine Ratio 20.3 H 15.6 Glucose 109 H 110 H Lactate Calcium 8.4 L 9.3 Phosphorus 2.8 D Magnesium 2.2 1.4 L Total Bilirubin 0.9 1.1 H Direct Bilirubin 0.1 AST 83 H 54 H ALT 63 H 54 H Alkaline Phosphatase 49 54 Total Creatine Kinase 502 H 182 C-Reactive Protein 7.05 H Total Protein 6.2 6.1 Albumin 3.2 L 3.3 L Globulin 2.8 Albumin/Globulin Ratio 1.2 Vitamin B12 364 Procalcitonin Random Cortisol Urine Color Urine Appearance Urine pH Ur Specific Darfur Urine Protein Urine Glucose (UA) Urine Ketones Urine Blood Urine Nitrite Urine Bilirubin Urine Urobilinogen Ur Leukocyte Esterase Urine WBC (Auto) Urine RBC (Auto) U Hyaline Cast (Auto) U Epithel Cells (Auto) Urine Bacteria (Auto) Nasal Screen MRSA (PCR) Stl C. cayetanensis PCR Stool Rotavirus A PCR Stl Adenov F 40/41 PCR Stool Astrovirus (PCR) Stool Campylobacter PCR Stool Cryptosporidium PCR Stl E.coli Shiga Tox PCR Stl Enterotoxigenic E PCR Stool EPEC (PCR) Stool EAEC (PCR) Stl E. histolytica PCR Stool Giardia Lamblia PCR Stool Salmonella PCR Stool Sapovirus (PCR) Stl P. shigelloides PCR Stl Shigella/EIEC PCR St Y.enterocolitica PCR Stool Vibrio (PCR) Stl Vibrio cholerae PCR Stl Norovirus GI/GII PCR Diagnostic Imagining Performed 09/20/24 11:48 CT chest diagnostic wo con Stat 09/20/24 11:49 CT abd pelvis wo con Stat Chest CT 09/20/24 11:48 CT chest diagnostic wo con, CT abd pelvis wo con CT DOSE: 2266.86 mGy.cm CLINICAL HISTORY: 39 years-old Male with Hypotension, sob. Acute chest and abdominal pain TECHNIQUE: Multiaxial CT images of the chest, abdomen and pelvis were performed without contrast. A dose lowering technique was utilized adhering to the principles of ALARA. COMPARISON: CT abdomen and pelvis 08/22/2010, CTA chest 04/26/2010 FINDINGS: CT CHEST: Unremarkable thyroid. Heart is normal in size without pericardial effusion. No thoracic aortic aneurysm. Moderate gynecomastia. Moderate right hemidiaphragmatic elevation. Subsegmental right basilar scarring/atelectasis again noted. Unremarkable soft tissues. No acute fracture. CT ABDOMEN/PELVIS: No pneumoperitoneum. Unremarkable unenhanced spleen, pancreas and adrenal glands. Hepatic steatosis. Surgically absent gallbladder. Unremarkab le kidneys without hydronephrosis. Decompressed bladder with wall thickening. Abdominal pelvic varicosities are noted. Surgical clips within the right abdomen with small bowel anastomotic sutures. A few loops of small bowel demonstrates circumferential wall thickening with adjacent inflammatory stranding. No high- grade small bowel obstruction. Several intra-abdominal hernias are noted, one of which partially contains a loop of bowel on image 205 series 7. Dilated loop of bowel image 100 measures 3.9 cm transversely. No drainable fluid collections. No acute fracture. IMPRESSION: 1. No acute process of the chest. 2. Several loops of small bowel demonstrate circumferential wall thickening with interloop edema suggestive of a nonspecific enteritis. A single loop is mildly dilated as well. A partial small bowel obstruction considered less likely. 3. No pneumoperitoneum. 4. Additional findings as above. ACT 112: Negative or not required by law. Electronically signed by: Jose J Deutsch M.D. 09/20/2024 1:25 PM Abdomen/Pelvis CT 09/20/24 11:49 CT chest diagnostic wo con, CT abd pelvis wo con CT DOSE: 2266.86 mGy.cm CLINICAL HISTORY: 39 years-old Male with Hypotension, sob. Acute chest and abdominal pain TECHNIQUE: Multiaxial CT images of the chest, abdomen and pelvis were performed without contrast. A dose lowering technique was utilized adhering to the principles of ALARA. COMPARISON: CT abdomen and pelvis 08/22/2010, CTA chest 04/26/2010 FINDINGS: CT CHEST: Unremarkable thyroid. Heart is normal in size without pericardial effusion. No thoracic aortic aneurysm. Moderate gynecomastia. Moderate right hemidiaphragmatic elevation. Subsegmental right basilar scarring/atelectasis again noted. Unremarkable soft tissues. No acute fracture. CT ABDOMEN/PELVIS: No pneumoperitoneum. Unremarkable unenhanced spleen, pancreas and adrenal glands. Hepatic steatosis. Surgically absent gallbladder. Unremarkable kidneys without hydronephrosis. Decompressed bladder with wall thickening. Abdominal pelvic varicosities are noted. Surgical clips within the right abdomen with small bowel anastomotic sutures. A few loops of small bowel demonstrates circumferential wall thickening with adjacent inflammatory stranding. No high-grade small bowel obstruction. Several intra-abdominal hernias are noted, one of which partially contains a loop of bowel on image 205 series 7. Dilated loop of bowel image 100 measures 3.9 cm transversely. No drainable fluid collections. No acute fracture. IMPRESSION: 1. No acute process of the chest. 2. Several loops of small bowel demonstrate circumferential wall thickening with interloop edema suggestive of a nonspecific enteritis. A single loop is mildly dilated as well. A partial small bowel obstruction considered less likely. 3. No pneumoperitoneum. 4. Additional findings as above. ACT 112: Negative or not required by law. Electronically signed by: Jose J Deutsch M.D. 09/20/2024 1:25 PM Pending Results Patient Have Any Pending Studies at Discharge: No Discharge Instructions Given to Patient (Per Discharging Provider) DISCHARGE INSTRUCTION TO PATIENT/FAMILY: Follow-up with your primary care provider within 1 week regarding: Posthospital discharge, medication review, medication refills and follow-up on all your medical problems, LABS and return to work clearance Please take all your discharge medications, discharge information and discharge instructions to all your doctors appointments. Avoid all NSAIDs including ibuprofen, Motrin, Advil, Aleve, naproxen, meloxicam, Toradol, diclofenac Labs through PCP within 1 week: CBC, CMP, MG, VITAMIN D, HEPATITIS SCREEN FOR HEP A, B, C, CPK You were seen by wound care nurse who is suspecting you may have peripheral vascular disease: Please see your primary care provider for outpatient RONDA/PVR to assess for peripheral vascular disease. Avoid all alcohol and finish your full course of antibiotics as prescribed Do not drink any alcohol while taking metronidazole/Flagyl Do not do any strenuous exercises while taking levofloxacin as it may cause tendon rupture Total Time Total Time Spent Total Time Spent (In Minutes): 40 minutes Coding Level of Care Code 14874 INP/OBS DISCH >30 MIN Diagnoses CHYNA (acute kidney injury) N17.9 Septic shock A41.9; R65.21 Enteritis K52.9 Elevated LFTs R79.89 Rhabdomyolysis M62.82 Thrombocytopenia D69.6 Hypomagnesemia E83.42
[2024-09-23 15:10] VITALS: BP 106/64; PULSE 78
== END 2024-09-23 16:40 | disposition home or self-care (01) | DRG 871 ==
LOC: ED 11:21 → SUATTDRO 14:20 → 1E 14:20 → 2S 09-21 14:34